=== PATIENT | female | born 1965 | race Caucasian/White ===

== ENCOUNTER 2021-02-02 20:03 | Inpatient (IN) ==
[2021-02-02] MEDS ORDERED: DILTIAZEM 50 MG/10 ML VIAL IV STA (20:19)
[2021-02-02 21:31] LABS: Basophils % 0.1 % (0.0-0.8); Eosinophils % 0.2 % (0.00-10.9); Hematocrit 27.3 VOL% (35.7-47.0); Immature Granulocytes % 1.3 %; Immature Granulocytes Absolute 0.16 #; Lymphocytes # 1.1 10*3/uL (1.4-4.0); Lymphocytes % 8.4 % (21.3-54.2); Mean Corpuscular Volume 92.5 FL (87-102); Mean Platelet Volume 10.9 FL (9.6-12.0); Monocytes % 9.8 % (1.7-12.7); Neutrophils % 80.2 % (38.7-73.9); Platelet Count 72 T/CUMM (130-400); Red Blood Count 2.95 MC/CUMM (3.8-5.5); White Blood Count 12.8 T/CUMM (4-12)
[2021-02-02 21:52] LABS: Anisocytosis 1+; Burr Cells 1+; Hypochromasia 1+; Schistocytes 1+
[2021-02-02 21:53] LABS: Platelet Estimate Decreased; Polychromasia Slight
[2021-02-02 21:58] LABS: Bilirubin,Total 4.7 MG/DL (0.20-1.00); Calcium 8.7 MG/DL (8.5-10.1); Osmolality,Calculated 286.7 MOS/KG (273-304); Potassium 4.2 MMOL/L (3.5-5.1); Total Protein 4.2 G/DL (6.4-8.2)
[2021-02-02 22:51] LABS: Free T4 (Free Thyroxine) 0.48 NG/DL (0.76-1.46)
[2021-02-03] MEDS ORDERED: DOCUSATE SODIUM 100 MG CAPSULE PO PRN (00:53)
[2021-02-03] MEDS ORDERED: hydrALAZINE 20 MG/1 ML VIAL IV PRN (00:53)
[2021-02-03] MEDS ORDERED: MORPHINE 2 MG/1 ML SYRINGE IV PRN (00:53)
[2021-02-03] MEDS ORDERED: guaiFENesin/DM ER 600-30 MG TABLET PO PRN (00:53)
[2021-02-03] MEDS ORDERED: DEXTROSE 50% 25 GM/50 ML VIAL IV PRN (00:53)
[2021-02-03] MEDS ORDERED: GLUCAGON 1 MG VIAL IM PRN (00:53)
[2021-02-03] MEDS: SODIUM CHLORIDE 0.9% 1,000 ML IV SCH ×3 (01:21→22:00)
[2021-02-03 06:08] LABS: Basophils % 0.1 % (0.0-0.8); Eosinophils % 0.2 % (0.00-10.9); Hematocrit 25.9 VOL% (35.7-47.0); Hemoglobin 8.7 GM/DL (12.0-16.0); Immature Granulocytes % 1.2 %; Immature Granulocytes Absolute 0.17 #; Lymphocytes # 1.3 10*3/uL (1.4-4.0); Lymphocytes % 8.9 % (21.3-54.2); Mean Corpuscular HGB Conc 33.6 GM/DL (32-36); Mean Corpuscular Volume 92.8 FL (87-102); Mean Platelet Volume 10.8 FL (9.6-12.0); Monocytes % 9.1 % (1.7-12.7); Neutrophils % 80.5 % (38.7-73.9); Red Blood Count 2.79 MC/CUMM (3.8-5.5); White Blood Count 14.2 T/CUMM (4-12)
[2021-02-03 06:12] LABS: Platelet Count 79 T/CUMM (130-400)
[2021-02-03] MEDS: LEVOTHYROXINE 100 MCG TABLET PO SCH (06:15)
[2021-02-03 06:29] LABS: Anisocytosis 2+; Macrocytosis 1+; Platelet Estimate Decreased
[2021-02-03 06:30] LABS: Burr Cells Few; Calcium 8.9 MG/DL (8.5-10.1); Osmolality,Calculated 292.4 MOS/KG (273-304); Ovalocytes Few; Potassium 4.8 MMOL/L (3.5-5.1); Total Protein 4.1 G/DL (6.4-8.2)
[2021-02-03] MEDS: LACTULOSE 20 GM/30 ML UDCUP PO SCH ×2 (15:27→22:45)
[2021-02-04 06:09] LABS: Basophils % 0.1 % (0.0-0.8); Eosinophils # 0.5 10*3/uL (0.0-0.87); Eosinophils % 3.4 % (0.00-10.9); Hematocrit 23.6 VOL% (35.7-47.0); Hemoglobin 8.2 GM/DL (12.0-16.0); Immature Granulocytes % 1.5 %; Immature Granulocytes Absolute 0.21 #; Lymphocytes # 1.8 10*3/uL (1.4-4.0); Lymphocytes % 12.7 % (21.3-54.2); Mean Corpuscular HGB Conc 34.7 GM/DL (32-36); Mean Corpuscular Volume 91.8 FL (87-102); Mean Platelet Volume 10.8 FL (9.6-12.0); Monocytes % 11.2 % (1.7-12.7); Neutrophils % 71.1 % (38.7-73.9); Platelet Count 69 T/CUMM (130-400); Red Blood Count 2.57 MC/CUMM (3.8-5.5); Red Cell Distribution Width 22.6 % (9.3-17.3); White Blood Count 14.4 T/CUMM (4-12)
[2021-02-04 06:31] LABS: Hypochromasia 1+; Microcytosis 1+; Platelet Estimate Decreased
[2021-02-04] MEDS: LEVOTHYROXINE 100 MCG TABLET PO SCH (06:36)
[2021-02-04 06:44] LABS: Calcium 8.5 MG/DL (8.5-10.1); Osmolality,Calculated 287.7 MOS/KG (273-304); Potassium 4.1 MMOL/L (3.5-5.1)
[2021-02-04] MEDS ORDERED: ALBUMIN 25% 50 GM/200 ML VIAL IV ONE (10:03)
[2021-02-04] MEDS: LACTULOSE 20 GM/30 ML UDCUP PO SCH ×3 (10:33→22:30)
[2021-02-04] MEDS: PROPRANOLOL 20 MG TABLET PO SCH (10:34)
[2021-02-04 10:46] LABS: % Iron Saturation 41.6 % (18-50); Ferritin 335.2 ng/mL (8-252)
[2021-02-04 14:33] LABS: Bilirubin,Urine Negative (Negative); Blood, Urine Negative (Negative); Glucose,Urine (UA) Negative (Negative); Hyaline Casts,Urine 27 /LPF (0-3); Ketones,Urine Negative (Negative); Mucus,Urine Occasional /LPF (Occasional); Nitrite,Urine Negative (Negative); Protein,Urine Negative; Squamous Epithelial Cell,Urine Occasional /HPF (0-10); Urine Appearance CLEAR (Clear); Urine Color Yellow (Yellow); Urine Specific Gravity 1.011 (1.001-1.035); Urine Urobilinogen < 2.0 EU/DL (0.2-1.0)
[2021-02-04 14:49] LABS: Bacteria,Urine Occasional /HPF (Few); Bilirubin,Urine Negative (Negative); Blood, Urine Negative (Negative); Glucose,Urine (UA) Negative (Negative); Hyaline Casts,Urine 13 /LPF (0-3); Ketones,Urine Negative (Negative); Mucus,Urine Occasional /LPF (Occasional); Nitrite,Urine Negative (Negative); Protein,Urine Negative; RBC,Urine 1 /HPF (0-4); Squamous Epithelial Cell,Urine Occasional /HPF (0-10); Urine Appearance CLEAR (Clear); Urine Color Yellow (Yellow); Urine Specific Gravity 1.011 (1.001-1.035); Urine Urobilinogen < 2.0 EU/DL (0.2-1.0)
[2021-02-04] MEDS: MIDODRINE 5 MG TABLET PO SCH ×2 (14:56→22:30)
[2021-02-04] MEDS: PANTOPRAZOLE 40 MG TABLET PO SCH (15:51)
[2021-02-05] MEDS: LEVOTHYROXINE 100 MCG TABLET PO SCH (05:56)
[2021-02-05 06:59] LABS: Albumin 2.2 G/DL (3.4-5.0); Bilirubin,Total 4.7 MG/DL (0.20-1.00); Calcium 8.8 MG/DL (8.5-10.1); Osmolality,Calculated 289.4 MOS/KG (273-304); Potassium 3.7 MMOL/L (3.5-5.1); Total Protein 3.7 G/DL (6.4-8.2)
[2021-02-05 07:15] LABS: Basophils % 0.1 % (0.0-0.8); Eosinophils # 0.8 10*3/uL (0.0-0.87); Eosinophils % 7.5 % (0.00-10.9); Hematocrit 20.3 VOL% (35.7-47.0); Hemoglobin 6.9 GM/DL (12.0-16.0); Immature Granulocytes % 0.6 %; Immature Granulocytes Absolute 0.07 #; Lymphocytes # 1.1 10*3/uL (1.4-4.0); Lymphocytes % 9.9 % (21.3-54.2); Mean Corpuscular Volume 92.3 FL (87-102); Mean Platelet Volume 10.5 FL (9.6-12.0); Monocytes % 6.2 % (1.7-12.7); Neutrophils % 75.7 % (38.7-73.9); White Blood Count 10.8 T/CUMM (4-12)
[2021-02-05 07:17] LABS: Platelet Count 51 T/CUMM (130-400)
[2021-02-05 07:21] LABS: Hypochromasia 2+; Microcytosis 1+; Ovalocytes Slight; Platelet Estimate Decreased
[2021-02-05] MEDS ORDERED: SODIUM CHLORIDE 0.9% 1,000 ML IV PRN (08:27)
[2021-02-05] MEDS ORDERED: ALBUMIN 25% 50 GM/200 ML VIAL IV ONE (08:36)
[2021-02-05] MEDS: cefTRIAXone 1,000 MG in SODIUM CHLORIDE 0.9% 100 ML IV SCH (09:03)
[2021-02-05] MEDS: LACTULOSE 20 GM/30 ML UDCUP PO SCH ×3 (09:06→22:38)
[2021-02-05] MEDS: PROPRANOLOL 20 MG TABLET PO SCH (09:06)
[2021-02-05] MEDS: PANTOPRAZOLE 40 MG VIAL IV SCH ×2 (09:06→22:35)
[2021-02-05] MEDS: MIDODRINE 5 MG TABLET PO SCH ×2 (09:06→22:37)
[2021-02-05] MEDS: PANTOPRAZOLE 40 MG TABLET PO SCH (12:47)
[2021-02-05 21:58] LABS: Hematocrit 26.7 VOL% (35.7-47.0); Hemoglobin 8.7 GM/DL (12.0-16.0)
[2021-02-06 06:02] LABS: PT Patient Result 21.4 SECS (10.5-12.0)
[2021-02-06] MEDS: LEVOTHYROXINE 100 MCG TABLET PO SCH (06:03)
[2021-02-06 06:04] LABS: Basophils % 0.1 % (0.0-0.8); Eosinophils # 0.9 10*3/uL (0.0-0.87); Eosinophils % 10.9 % (0.00-10.9); Hematocrit 24.8 VOL% (35.7-47.0); Hemoglobin 8.3 GM/DL (12.0-16.0); Immature Granulocytes % 0.8 %; Immature Granulocytes Absolute 0.06 #; Lymphocytes # 0.7 10*3/uL (1.4-4.0); Lymphocytes % 9.4 % (21.3-54.2); Mean Corpuscular HGB Conc 33.5 GM/DL (32-36); Mean Corpuscular Volume 91.2 FL (87-102); Mean Platelet Volume 10.7 FL (9.6-12.0); Neutrophils % 69.8 % (38.7-73.9); Platelet Count 42 T/CUMM (130-400); Red Blood Count 2.72 MC/CUMM (3.8-5.5); Red Cell Distribution Width 21.3 % (9.3-17.3); White Blood Count 7.8 T/CUMM (4-12)
[2021-02-06 06:25] LABS: Hypochromasia 1+; Microcytosis 1+
[2021-02-06 06:26] LABS: Platelet Estimate Decreased
[2021-02-06 06:44] LABS: Albumin 2.2 G/DL (3.4-5.0); Bilirubin,Total 4.6 MG/DL (0.20-1.00); Calcium 8.7 MG/DL (8.5-10.1); Osmolality,Calculated 290.2 MOS/KG (273-304); Potassium 3.6 MMOL/L (3.5-5.1); Total Protein 3.9 G/DL (6.4-8.2)
[2021-02-06] MEDS: MIDODRINE 5 MG TABLET PO SCH ×2 (11:13→21:43)
[2021-02-06] MEDS: PANTOPRAZOLE 40 MG VIAL IV SCH ×2 (11:13→21:44)
[2021-02-06] MEDS: cefTRIAXone 1,000 MG in SODIUM CHLORIDE 0.9% 100 ML IV SCH (11:14)
[2021-02-06] MEDS: LACTULOSE 20 GM/30 ML UDCUP PO SCH ×3 (11:14→21:43)
[2021-02-06] MEDS: PROPRANOLOL 20 MG TABLET PO SCH (11:15)
[2021-02-06 13:12] LABS: Hematocrit 24.8 VOL% (35.7-47.0); Hemoglobin 8.3 GM/DL (12.0-16.0)
[2021-02-06] MEDS ORDERED: PHYTONADIONE 10 MG/1 ML AMP SUBCUT ONE (14:16)
[2021-02-07 06:22] LABS: Basophils % 0.2 % (0.0-0.8); Eosinophils # 1.1 10*3/uL (0.0-0.87); Eosinophils % 11.5 % (0.00-10.9); Hematocrit 25.2 VOL% (35.7-47.0); Hemoglobin 8.7 GM/DL (12.0-16.0); Lymphocytes # 0.5 10*3/uL (1.4-4.0); Lymphocytes % 5.6 % (21.3-54.2); Mean Corpuscular HGB Conc 34.5 GM/DL (32-36); Mean Corpuscular Volume 91.6 FL (87-102); Mean Platelet Volume 11.5 FL (9.6-12.0); Monocytes % 9.7 % (1.7-12.7); Platelet Count 46 T/CUMM (130-400); Red Blood Count 2.75 MC/CUMM (3.8-5.5); Red Cell Distribution Width 22.1 % (9.3-17.3); White Blood Count 9.5 T/CUMM (4-12)
[2021-02-07 06:35] LABS: PT Patient Result 21.2 SECS (10.5-12.0)
[2021-02-07 06:40] LABS: Calcium 8.6 MG/DL (8.5-10.1); Potassium 3.4 MMOL/L (3.5-5.1)
[2021-02-07 06:42] LABS: Eosinophils 4 % (0-10); Hypochromasia 1+; Lymphocytes 9 % (20-55); Platelet Estimate Decreased; Segmented Neutrophils 80 % (50-85); Total Cells Counted 100
[2021-02-07] MEDS: PANTOPRAZOLE 40 MG VIAL IV SCH ×2 (10:07→20:06)
[2021-02-07] MEDS: MIDODRINE 5 MG TABLET PO SCH ×2 (10:08→20:06)
[2021-02-07] MEDS: PROPRANOLOL 20 MG TABLET PO SCH (10:08)
[2021-02-07] MEDS: LACTULOSE 20 GM/30 ML UDCUP PO SCH ×3 (10:08→20:06)
[2021-02-07] MEDS: LEVOTHYROXINE 100 MCG TABLET PO SCH (10:08)
[2021-02-07] MEDS: cefTRIAXone 1,000 MG in SODIUM CHLORIDE 0.9% 100 ML IV SCH (10:08)
[2021-02-07] MEDS: LACTATED RINGERS 1,000 ML IV SCH ×2 (10:47→12:24)
[2021-02-07] MEDS ORDERED: POTASSIUM CHLORIDE 20 MEQ TABLET PO ONE (11:00)
[2021-02-07] MEDS ORDERED: ETOMIDATE 20 MG/10 ML VIAL IV ONE (11:34)
[2021-02-07] MEDS ORDERED: LIDOCAINE 2% 5 ML VIAL ONE (11:34)
[2021-02-07] MEDS ORDERED: ePHEDrine 50 MG/ML VIAL ONE (11:43)
[2021-02-08 05:43] LABS: Basophils % 0.2 % (0.0-0.8); Eosinophils # 1.1 10*3/uL (0.0-0.87); Eosinophils % 12.9 % (0.00-10.9); Hematocrit 24.6 VOL% (35.7-47.0); Hemoglobin 8.2 GM/DL (12.0-16.0); Immature Granulocytes % 0.6 %; Immature Granulocytes Absolute 0.05 #; Lymphocytes # 0.5 10*3/uL (1.4-4.0); Lymphocytes % 6.2 % (21.3-54.2); Mean Corpuscular HGB Conc 33.3 GM/DL (32-36); Mean Corpuscular Volume 92.1 FL (87-102); Mean Platelet Volume 10.9 FL (9.6-12.0); Monocytes % 11.6 % (1.7-12.7); Neutrophils % 68.5 % (38.7-73.9); Red Blood Count 2.67 MC/CUMM (3.8-5.5); Red Cell Distribution Width 22.1 % (9.3-17.3); White Blood Count 8.7 T/CUMM (4-12)
[2021-02-08 06:00] LABS: Platelet Count 41 T/CUMM (130-400)
[2021-02-08 06:12] LABS: Eosinophils 15 % (0-10); Hypochromasia 1+; Lymphocytes 3 % (20-55); Microcytosis 1+; Segmented Neutrophils 77 % (50-85); Total Cells Counted 100
[2021-02-08 06:13] LABS: Acanthocytes Few; Burr Cells Slight; Target Cells Slight
[2021-02-08 06:14] LABS: Platelet Estimate Decreased; Polychromasia Slight
[2021-02-08] MEDS: LEVOTHYROXINE 100 MCG TABLET PO SCH (06:19)
[2021-02-08] MEDS: LACTATED RINGERS 1,000 ML IV SCH (07:54)
[2021-02-08] MEDS: LACTULOSE 20 GM/30 ML UDCUP PO SCH ×3 (09:47→21:47)
[2021-02-08] MEDS: PANTOPRAZOLE 40 MG VIAL IV SCH ×2 (09:49→21:47)
[2021-02-08] MEDS: PROPRANOLOL 20 MG TABLET PO SCH (09:49)
[2021-02-08] MEDS: MIDODRINE 5 MG TABLET PO SCH ×2 (09:49→21:47)
[2021-02-08] MEDS: cefTRIAXone 1,000 MG in SODIUM CHLORIDE 0.9% 100 ML IV SCH (09:50)
[2021-02-09] MEDS: LEVOTHYROXINE 100 MCG TABLET PO SCH (05:56)
[2021-02-09] MEDS: PROPRANOLOL 20 MG TABLET PO SCH (08:57)
[2021-02-09] MEDS: MIDODRINE 5 MG TABLET PO SCH (08:57)
[2021-02-09] MEDS: PANTOPRAZOLE 40 MG VIAL IV SCH (08:57)
[2021-02-09] MEDS: cefTRIAXone 1,000 MG in SODIUM CHLORIDE 0.9% 100 ML IV SCH (08:58)
[2021-02-09] MEDS: LACTULOSE 20 GM/30 ML UDCUP PO SCH ×2 (10:25→14:03)
[2021-02-09 11:53] VITALS: BP 95/34
== END 2021-02-09 14:45 | DRG 377 ==
LOC: EDUNIT# → EDBD → N.EDINP 20:03 → N.ED 20:03 → SUATTDRO 02-03 00:53 → N.5E 02-03 02:52 → SUATTDRO 02-05 08:31
PROVIDERS: ADMIT Internal Medicine; ATTEND Internal Medicine

== ENCOUNTER 2021-02-15 18:52 | Inpatient (IN) ==
[2021-02-15] MEDS ORDERED: HYDROmorphone 2 MG/1 ML VIAL ONE (18:54)
[2021-02-15] MEDS ORDERED: ONDANSETRON 4 MG/2 ML VIAL ONE (18:54)
[2021-02-15] MEDS ORDERED: ceFAZolin 2,000 MG/50 ML DUPLEX IV ONE (19:01)
[2021-02-15] MEDS ORDERED: ONDANSETRON 4 MG/2 ML VIAL IV STA (20:57)
[2021-02-15] MEDS ORDERED: LACTATED RINGERS 500 ML IV ONE (20:57)
[2021-02-15 21:39] LABS: Basophils % 0.3 % (0.0-0.8); Eosinophils # 1.5 10*3/uL (0.0-0.87); Eosinophils % 14.6 % (0.00-10.9); Hematocrit 22.8 VOL% (35.7-47.0); Hemoglobin 7.7 GM/DL (12.0-16.0); Immature Granulocytes % 0.6 %; Immature Granulocytes Absolute 0.06 #; Lymphocytes # 1.1 10*3/uL (1.4-4.0); Lymphocytes % 11.3 % (21.3-54.2); Mean Corpuscular HGB Conc 33.8 GM/DL (32-36); Mean Corpuscular Volume 91.6 FL (87-102); Mean Platelet Volume 11.1 FL (9.6-12.0); Monocytes % 7.3 % (1.7-12.7); Neutrophils % 65.9 % (38.7-73.9); Platelet Count 80 T/CUMM (130-400); Red Blood Count 2.49 MC/CUMM (3.8-5.5); Red Cell Distribution Width 21.5 % (9.3-17.3)
[2021-02-15 21:46] LABS: INR 2.2; PT Patient Result 23.2 SECS (10.5-12.0)
[2021-02-15 21:55] LABS: Alanine Aminotransferase 52 U/L (13-56); Alkaline Phosphatase 118 U/L (45-117); Aspartate Amino Transferase 45 U/L (0-37); Blood Urea Nitrogen 67 MG/DL (7-18); Calcium 8.3 MG/DL (8.5-10.1); Carbon Dioxide 15 MMOL/L (21-32); Estimated Glom Filtration Rate 19 ML/MIN; Glucose 132 MG/DL (74-106); Lactic Acid 4.1 MMOL/L (0.4-2.0); Potassium 3.2 MMOL/L (3.5-5.1); Sodium 136 MMOL/L (136-145); Total Protein 3.4 G/DL (6.4-8.2)
[2021-02-15 22:14] LABS: Eosinophils 17 % (0-10); Lymphocytes 7 % (20-55); Segmented Neutrophils 75 % (50-85); Total Cells Counted 100
[2021-02-15 22:15] LABS: Platelet Estimate Decreased
[2021-02-15 22:15] LABS: Bacteria,Urine Occasional /HPF (Few); Bilirubin,Urine Negative (Negative); Blood, Urine Moderate mg/dL (Negative); Glucose,Urine (UA) Negative (Negative); Hyaline Casts,Urine 14 /LPF (0-3); Ketones,Urine Negative (Negative); Nitrite,Urine Negative (Negative); Protein,Urine Negative; RBC,Urine 3 /HPF (0-4); Squamous Epithelial Cell,Urine Occasional /HPF (0-10); Urine Appearance Slightly Hazy (Clear); Urine Color Amber (Yellow); Urine Specific Gravity 1.012 (1.001-1.035); Urine Urobilinogen < 2.0 EU/DL (0.2-1.0)
[2021-02-15 22:16] LABS: Acanthocytes 1+; Schistocytes Few
[2021-02-15] MEDS ORDERED: MEROPENEM 500 MG in SODIUM CHLORIDE 0.9% 100 ML IV ONE (22:16)
[2021-02-15] MEDS ORDERED: hydrALAZINE 20 MG/1 ML VIAL IV PRN (22:26)
[2021-02-15] MEDS ORDERED: MORPHINE 2 MG/1 ML SYRINGE IV PRN (22:26)
[2021-02-15] MEDS ORDERED: DEXTROSE 50% 25 GM/50 ML SYRINGE IV PRN (22:26)
[2021-02-15] MEDS ORDERED: NICOTINE 21 MG/24 HR PATCH TRANSDERM PRN (22:26)
[2021-02-15] MEDS ORDERED: ACETAMINOPHEN 325 MG TABLET PO PRN (22:26)
[2021-02-15] MEDS ORDERED: GLUCAGON 1 MG VIAL IM PRN (22:26)
[2021-02-15] MEDS ORDERED: ONDANSETRON 4 MG/2 ML VIAL IV PRN (22:26)
[2021-02-15] MEDS ORDERED: guaiFENesin/DM ER 600-30 MG TABLET PO PRN (22:26)
[2021-02-15] MEDS ORDERED: diphenhydrAMINE CAP 25 MG CAPSULE PO PRN (22:26)
[2021-02-16] MEDS ORDERED: SODIUM CHLORIDE 0.9% 1,000 ML IV PRN (01:22)
[2021-02-16] MEDS ORDERED: SODIUM CHLORIDE 0.9% 1,000 ML IV ONE (06:42)
[2021-02-16] MEDS ORDERED: POTASSIUM CHLORIDE 20 MEQ TABLET PO ONE (09:00)
[2021-02-16] MEDS: PANTOPRAZOLE 40 MG TABLET PO SCH (09:33)
[2021-02-16] MEDS: MEROPENEM 500 MG in SODIUM CHLORIDE 0.9% 100 ML IV SCH ×2 (09:33→21:54)
[2021-02-16] MEDS: DOCUSATE SODIUM 100 MG CAPSULE PO SCH ×2 (09:34→21:49)
[2021-02-16] MEDS ORDERED: ACETAMINOPHEN 500 MG TABLET PO PRN (12:05)
[2021-02-16] MEDS ORDERED: MIDODRINE 5 MG TABLET PO SCH (12:30)
[2021-02-16] MEDS ORDERED: LACTULOSE 20 GM/30 ML UDCUP PO SCH (15:00)
[2021-02-16] MEDS ORDERED: ALBUMIN 25% 50 GM/200 ML VIAL IV ONE (15:39)
[2021-02-16] MEDS: FUROSEMIDE 20 MG/2 ML VIAL IV SCH (16:02)
[2021-02-16] MEDS: LACTULOSE 20 GM/30 ML UDCUP PO SCH ×2 (16:02→21:48)
[2021-02-16 17:07] LABS: Hematocrit 25.9 VOL% (35.7-47.0); Hemoglobin 8.7 GM/DL (12.0-16.0)
[2021-02-16] MEDS: ZALEPLON 5 MG CAPSULE PO PRN (21:48)
[2021-02-16] MEDS: MIDODRINE 2.5 MG TABLET PO SCH (21:48)
[2021-02-17 03:41] LABS: ABG Base Excess -7.5 MMOL/L (-2.5-2.5); ABG HCO3 18.1 MMOL/L (20-26); ABG Oxygen Saturation 80.5 % (95-100); ABG PCO2 33.7 MM HG (35-48); ABG PH 7.328 (7.35-7.45); ABG PO2 50.4 MM HG (80-95); ABG TCO2 16.6 MMOL/L (23-27)
[2021-02-17] MEDS: LEVOTHYROXINE 100 MCG TABLET PO SCH (05:51)
[2021-02-17 06:10] LABS: Basophils % 0.5 % (0.0-0.8); Eosinophils # 1.1 10*3/uL (0.0-0.87); Eosinophils % 15.9 % (0.00-10.9); Hematocrit 23.8 VOL% (35.7-47.0); Hemoglobin 7.8 GM/DL (12.0-16.0); Immature Granulocytes % 0.5 %; Immature Granulocytes Absolute 0.03 #; Lymphocytes # 0.7 10*3/uL (1.4-4.0); Lymphocytes % 10.4 % (21.3-54.2); Mean Corpuscular HGB Conc 32.8 GM/DL (32-36); Mean Platelet Volume 10.8 FL (9.6-12.0); Monocytes % 11.6 % (1.7-12.7); Neutrophils % 61.1 % (38.7-73.9); Platelet Count 47 T/CUMM (130-400); Red Blood Count 2.56 MC/CUMM (3.8-5.5); Red Cell Distribution Width 20.4 % (9.3-17.3); White Blood Count 6.6 T/CUMM (4-12)
[2021-02-17 06:31] LABS: Albumin 2.4 G/DL (3.4-5.0); Bilirubin,Direct 2.8 MG/DL (0.0-0.20); Bilirubin,Indirect 2.4 MG/DL (0.0-1.0); Bilirubin,Total 5.2 MG/DL (0.20-1.00); Calcium 8.5 MG/DL (8.5-10.1); Osmolality,Calculated 299.4 MOS/KG (273-304); Potassium 3.3 MMOL/L (3.5-5.1); Total Protein 3.6 G/DL (6.4-8.2)
[2021-02-17 06:35] LABS: Band Neutrophils 1 % (0-10); Eosinophils 14 % (0-10); Lymphocytes 6 % (20-55); Platelet Estimate Decreased; Segmented Neutrophils 76 % (50-85); Total Cells Counted 100
[2021-02-17 06:36] LABS: Hypochromasia 1+
[2021-02-17 06:49] LABS: Uric Acid 13.2 MG/DL (2.6-6.0)
[2021-02-17 08:34] LABS: ABG Base Excess -7.4 MMOL/L (-2.5-2.5); ABG HCO3 18.3 MMOL/L (20-26); ABG Oxygen Saturation 97.8 % (95-100); ABG PCO2 31.9 MM HG (35-48); ABG PH 7.347 (7.35-7.45); ABG TCO2 16.4 MMOL/L (23-27); Allen Test Positive; Pt O2 Delivery Device Room Air
[2021-02-17] MEDS ORDERED: POTASSIUM CHLORIDE 20 MEQ TABLET PO SCH (09:00)
[2021-02-17] MEDS: PHYTONADIONE 5 MG/5 ML ORAL.SYR PO SCH (09:23)
[2021-02-17] MEDS: PANTOPRAZOLE 40 MG TABLET PO SCH (09:24)
[2021-02-17] MEDS: MIDODRINE 2.5 MG TABLET PO SCH ×3 (09:24→21:48)
[2021-02-17] MEDS: LACTULOSE 20 GM/30 ML UDCUP PO SCH ×3 (09:24→21:47)
[2021-02-17] MEDS: DOCUSATE SODIUM 100 MG CAPSULE PO SCH ×2 (09:24→21:47)
[2021-02-17] MEDS: FUROSEMIDE 20 MG/2 ML VIAL IV SCH (09:24)
[2021-02-17] MEDS: MEROPENEM 500 MG in SODIUM CHLORIDE 0.9% 100 ML IV SCH (09:25)
[2021-02-17] MEDS ORDERED: FOSFOMYCIN 3 GM PACK PO ONE ×2 (13:00)
[2021-02-17] MEDS ORDERED: TUBERCULIN SKIN TEST 0.1 ML SYRINGE INTRADERM ONE (13:36)
[2021-02-17] MEDS ORDERED: SODIUM CHLORIDE 0.9% 1,000 ML IV PRN (14:12)
[2021-02-17] MEDS: FUROSEMIDE 40 MG TABLET PO SCH (17:45)
[2021-02-17] MEDS: RIFAXIMIN 550 MG TABLET PO SCH (21:47)
[2021-02-18] MEDS: LEVOTHYROXINE 100 MCG TABLET PO SCH (06:02)
[2021-02-18 06:44] LABS: Calcium 8.9 MG/DL (8.5-10.1); Osmolality,Calculated 299.3 MOS/KG (273-304); Potassium 3.2 MMOL/L (3.5-5.1)
[2021-02-18] MEDS ORDERED: POTASSIUM CHLORIDE 20 MEQ TABLET PO ONE (07:49)
[2021-02-18] MEDS: LACTULOSE 20 GM/30 ML UDCUP PO SCH ×3 (09:16→21:56)
[2021-02-18] MEDS: MIDODRINE 2.5 MG TABLET PO SCH ×3 (09:16→21:57)
[2021-02-18] MEDS: PHYTONADIONE 5 MG/5 ML ORAL.SYR PO SCH (09:16)
[2021-02-18] MEDS: PANTOPRAZOLE 40 MG TABLET PO SCH (09:17)
[2021-02-18] MEDS: RIFAXIMIN 550 MG TABLET PO SCH ×3 (09:17→21:56)
[2021-02-18] MEDS: FUROSEMIDE 40 MG TABLET PO SCH ×2 (09:17→16:04)
[2021-02-18] MEDS: DOCUSATE SODIUM 100 MG CAPSULE PO SCH ×2 (09:17→21:57)
[2021-02-18 09:33] LABS: Basophils % 0.6 % (0.0-0.8); Eosinophils # 1.2 10*3/uL (0.0-0.87); Eosinophils % 16.6 % (0.00-10.9); Hematocrit 24.9 VOL% (35.7-47.0); Hemoglobin 8.4 GM/DL (12.0-16.0); Immature Granulocytes % 0.6 %; Immature Granulocytes Absolute 0.04 #; Lymphocytes % 13.4 % (21.3-54.2); Mean Corpuscular HGB Conc 33.7 GM/DL (32-36); Mean Corpuscular Volume 91.9 FL (87-102); Monocytes % 11.8 % (1.7-12.7); Platelet Count 52 T/CUMM (130-400); Red Blood Count 2.71 MC/CUMM (3.8-5.5); Red Cell Distribution Width 20.5 % (9.3-17.3); White Blood Count 7.2 T/CUMM (4-12)
[2021-02-18 09:55] LABS: Eosinophils 15 % (0-10); Lymphocytes 10 % (20-55); Nucleated Red Blood Cells 1 (0-5); Segmented Neutrophils 65 % (50-85); Total Cells Counted 100
[2021-02-18 09:56] LABS: Acanthocytes 1+; Anisocytosis 1+; Burr Cells Few; Hypochromasia 1+; Microcytosis 1+
[2021-02-18 09:57] LABS: Platelet Estimate Decreased; Target Cells Slight
[2021-02-18] MEDS: DESITIN 4OZ/NYSTATIN 15 GRAM MIXTURE PASTE TOP SCH (21:56)
[2021-02-18] MEDS: ZALEPLON 5 MG CAPSULE PO PRN (21:57)
[2021-02-19 05:46] LABS: Basophils % 0.5 % (0.0-0.8); Eosinophils # 1.2 10*3/uL (0.0-0.87); Eosinophils % 13.2 % (0.00-10.9); Immature Granulocytes % 0.5 %; Immature Granulocytes Absolute 0.04 #; Lymphocytes # 1.3 10*3/uL (1.4-4.0); Mean Corpuscular HGB Conc 33.3 GM/DL (32-36); Mean Corpuscular Volume 90.9 FL (87-102); Mean Platelet Volume 11.3 FL (9.6-12.0); Monocytes % 13.3 % (1.7-12.7); Neutrophils % 57.5 % (38.7-73.9); Platelet Count 51 T/CUMM (130-400); Red Blood Count 2.64 MC/CUMM (3.8-5.5); Red Cell Distribution Width 20.8 % (9.3-17.3); White Blood Count 8.8 T/CUMM (4-12)
[2021-02-19] MEDS: LEVOTHYROXINE 100 MCG TABLET PO SCH (05:50)
[2021-02-19 06:06] LABS: Osmolality,Calculated 301.1 MOS/KG (273-304); Potassium 3.4 MMOL/L (3.5-5.1)
[2021-02-19 06:13] LABS: Eosinophils 11 % (0-10); Lymphocytes 18 % (20-55); Platelet Estimate Decreased; Segmented Neutrophils 64 % (50-85); Total Cells Counted 100
[2021-02-19 06:14] LABS: Burr Cells Slight; Hypochromasia 1+; Microcytosis 1+; Ovalocytes Slight
[2021-02-19] MEDS: LACTULOSE 20 GM/30 ML UDCUP PO SCH ×3 (10:21→21:53)
[2021-02-19] MEDS: DOCUSATE SODIUM 100 MG CAPSULE PO SCH ×2 (10:22→21:53)
[2021-02-19] MEDS: FUROSEMIDE 40 MG TABLET PO SCH ×2 (10:22→15:05)
[2021-02-19] MEDS: MIDODRINE 2.5 MG TABLET PO SCH ×3 (10:22→21:54)
[2021-02-19] MEDS: PANTOPRAZOLE 40 MG TABLET PO SCH (10:22)
[2021-02-19] MEDS: RIFAXIMIN 550 MG TABLET PO SCH ×3 (10:22→21:53)
[2021-02-19] MEDS: POTASSIUM CHLORIDE 20 MEQ TABLET PO SCH (10:22)
[2021-02-19] MEDS: DESITIN 4OZ/NYSTATIN 15 GRAM MIXTURE PASTE TOP SCH ×2 (10:23→21:55)
[2021-02-19] MEDS: ALBUMIN 25% 12.5 GM/50 ML VIAL IV SCH ×2 (10:28→22:00)
[2021-02-19] MEDS: PHYTONADIONE 5 MG/5 ML ORAL.SYR PO SCH (10:28)
[2021-02-19 14:15] LABS: ABG Base Excess -8.4 MMOL/L (-2.5-2.5); ABG HCO3 17.6 MMOL/L (20-26); ABG Oxygen Saturation 97.6 % (95-100); ABG PCO2 28.6 MM HG (35-48); ABG PO2 96.8 MM HG (80-95); ABG TCO2 15.1 MMOL/L (23-27)
[2021-02-19] MEDS: SODIUM BICARBONATE 650 MG TABLET PO SCH (21:53)
[2021-02-19] MEDS: ZALEPLON 5 MG CAPSULE PO PRN (21:54)
[2021-02-20] MEDS: LEVOTHYROXINE 100 MCG TABLET PO SCH (05:49)
[2021-02-20 06:47] LABS: Calcium 8.9 MG/DL (8.5-10.1); Osmolality,Calculated 295.7 MOS/KG (273-304)
[2021-02-20] MEDS: LACTULOSE 20 GM/30 ML UDCUP PO SCH ×3 (09:05→20:42)
[2021-02-20] MEDS: POTASSIUM CHLORIDE 20 MEQ TABLET PO SCH (09:05)
[2021-02-20] MEDS: MIDODRINE 2.5 MG TABLET PO SCH ×3 (09:06→20:41)
[2021-02-20] MEDS: SODIUM BICARBONATE 650 MG TABLET PO SCH ×3 (09:06→20:42)
[2021-02-20] MEDS: PANTOPRAZOLE 40 MG TABLET PO SCH (09:06)
[2021-02-20] MEDS: DOCUSATE SODIUM 100 MG CAPSULE PO SCH ×2 (09:06→20:41)
[2021-02-20] MEDS: DESITIN 4OZ/NYSTATIN 15 GRAM MIXTURE PASTE TOP SCH ×2 (09:06→20:43)
[2021-02-20] MEDS: FUROSEMIDE 40 MG TABLET PO SCH ×2 (09:06→15:46)
[2021-02-20] MEDS: RIFAXIMIN 550 MG TABLET PO SCH ×3 (09:06→20:41)
[2021-02-20] MEDS: ALBUMIN 25% 12.5 GM/50 ML VIAL IV SCH ×2 (09:06→20:42)
[2021-02-20 11:03] LABS: Basophils % 0.4 % (0.0-0.8); Eosinophils # 1.1 10*3/uL (0.0-0.87); Eosinophils % 13.5 % (0.00-10.9); Hematocrit 23.1 VOL% (35.7-47.0); Hemoglobin 7.5 GM/DL (12.0-16.0); Immature Granulocytes % 0.4 %; Immature Granulocytes Absolute 0.03 #; Lymphocytes # 1.5 10*3/uL (1.4-4.0); Lymphocytes % 18.1 % (21.3-54.2); Mean Corpuscular HGB Conc 32.5 GM/DL (32-36); Mean Corpuscular Volume 93.9 FL (87-102); Mean Platelet Volume 11.5 FL (9.6-12.0); Monocytes % 10.8 % (1.7-12.7); Neutrophils % 56.8 % (38.7-73.9); Platelet Count 47 T/CUMM (130-400); Red Blood Count 2.46 MC/CUMM (3.8-5.5); Red Cell Distribution Width 21.4 % (9.3-17.3); White Blood Count 8.2 T/CUMM (4-12)
[2021-02-20 11:29] LABS: Acanthocytes Few; Band Neutrophils 1 % (0-10); Burr Cells Slight; Eosinophils 13 % (0-10); Hypochromasia 1+; Lymphocytes 19 % (20-55); Microcytosis 1+; Segmented Neutrophils 55 % (50-85); Target Cells Slight; Total Cells Counted 100
[2021-02-20 11:30] LABS: Ovalocytes Slight; Platelet Estimate Decreased
[2021-02-20] MEDS ORDERED: CARBOXYMETHYLCELLULOSE 1% OPH SOLN BOTH EYES PRN (13:41)
[2021-02-20] MEDS: SKIN HEALING OINT (AQUAPHOR) 50 GM TUBE TOP SCH ×2 (14:07→20:43)
[2021-02-20] MEDS: ZALEPLON 5 MG CAPSULE PO PRN (20:42)
[2021-02-21] MEDS: LEVOTHYROXINE 100 MCG TABLET PO SCH (05:57)
[2021-02-21] MEDS: MIDODRINE 2.5 MG TABLET PO SCH ×3 (08:45→21:32)
[2021-02-21] MEDS: POTASSIUM CHLORIDE 20 MEQ TABLET PO SCH (08:45)
[2021-02-21] MEDS: DOCUSATE SODIUM 100 MG CAPSULE PO SCH ×2 (08:45→21:32)
[2021-02-21] MEDS: FUROSEMIDE 40 MG TABLET PO SCH ×2 (08:45→16:47)
[2021-02-21] MEDS: LACTULOSE 20 GM/30 ML UDCUP PO SCH ×3 (08:45→21:31)
[2021-02-21] MEDS: RIFAXIMIN 550 MG TABLET PO SCH ×3 (08:45→21:32)
[2021-02-21] MEDS: SODIUM BICARBONATE 650 MG TABLET PO SCH ×3 (08:45→21:32)
[2021-02-21] MEDS: PANTOPRAZOLE 40 MG TABLET PO SCH (08:45)
[2021-02-21] MEDS: SKIN HEALING OINT (AQUAPHOR) 50 GM TUBE TOP SCH ×3 (08:46→21:32)
[2021-02-21] MEDS: DESITIN 4OZ/NYSTATIN 15 GRAM MIXTURE PASTE TOP SCH ×2 (08:46→21:32)
[2021-02-21] MEDS: ALBUMIN 25% 12.5 GM/50 ML VIAL IV SCH (11:10)
[2021-02-21 12:13] LABS: Basophils # 0.1 10*3/uL (0.0-0.2); Basophils % 0.6 % (0.0-0.8); Eosinophils % 12.1 % (0.00-10.9); Hematocrit 23.2 VOL% (35.7-47.0); Hemoglobin 7.5 GM/DL (12.0-16.0); Immature Granulocytes % 0.5 %; Immature Granulocytes Absolute 0.04 #; Lymphocytes # 1.3 10*3/uL (1.4-4.0); Lymphocytes % 15.6 % (21.3-54.2); Mean Corpuscular HGB Conc 32.3 GM/DL (32-36); Mean Corpuscular Volume 93.5 FL (87-102); Mean Platelet Volume 11.3 FL (9.6-12.0); Monocytes % 11.6 % (1.7-12.7); Neutrophils % 59.6 % (38.7-73.9); Platelet Count 46 T/CUMM (130-400); Red Blood Count 2.48 MC/CUMM (3.8-5.5); Red Cell Distribution Width 21.4 % (9.3-17.3)
[2021-02-21] MEDS: MEROPENEM 500 MG in SODIUM CHLORIDE 0.9% 100 ML IV SCH (12:51)
[2021-02-21 13:00] LABS: Calcium 8.5 MG/DL (8.5-10.1); Osmolality,Calculated 303.3 MOS/KG (273-304); Potassium 3.8 MMOL/L (3.5-5.1)
[2021-02-21 13:02] LABS: Atypical Lymphocytes Few; Eosinophils 13 % (0-10); Lymphocytes 18 % (20-55); Segmented Neutrophils 63 % (50-85); Total Cells Counted 100
[2021-02-21 13:03] LABS: Acanthocytes Few; Burr Cells 2+; Target Cells Slight
[2021-02-21 13:04] LABS: Schistocytes Slight
[2021-02-21 13:05] LABS: Anisocytosis Slight; Elliptocytes Few
[2021-02-21 13:06] LABS: Platelet Estimate Decreased
[2021-02-21] MEDS: ZALEPLON 5 MG CAPSULE PO PRN (21:35)
[2021-02-22] MEDS: ALBUMIN 25% 12.5 GM/50 ML VIAL IV SCH ×3 (03:00→23:34)
[2021-02-22] MEDS: MEROPENEM 500 MG in SODIUM CHLORIDE 0.9% 100 ML IV SCH ×2 (03:31→13:12)
[2021-02-22] MEDS: LEVOTHYROXINE 100 MCG TABLET PO SCH (06:08)
[2021-02-22 07:55] LABS: Calcium 9.4 MG/DL (8.5-10.1); Osmolality,Calculated 306.7 MOS/KG (273-304); Potassium 4.5 MMOL/L (3.5-5.1)
[2021-02-22] MEDS: MIDODRINE 2.5 MG TABLET PO SCH ×3 (09:15→20:32)
[2021-02-22] MEDS: DOCUSATE SODIUM 100 MG CAPSULE PO SCH ×2 (09:15→20:32)
[2021-02-22] MEDS: FUROSEMIDE 40 MG TABLET PO SCH ×2 (09:15→15:40)
[2021-02-22] MEDS: LACTULOSE 20 GM/30 ML UDCUP PO SCH ×3 (09:15→20:33)
[2021-02-22] MEDS: RIFAXIMIN 550 MG TABLET PO SCH ×3 (09:15→20:31)
[2021-02-22] MEDS: POTASSIUM CHLORIDE 20 MEQ TABLET PO SCH (09:15)
[2021-02-22] MEDS: DESITIN 4OZ/NYSTATIN 15 GRAM MIXTURE PASTE TOP SCH ×2 (09:15→20:33)
[2021-02-22] MEDS: SODIUM BICARBONATE 650 MG TABLET PO SCH ×3 (09:15→20:31)
[2021-02-22] MEDS: SKIN HEALING OINT (AQUAPHOR) 50 GM TUBE TOP SCH ×3 (09:16→20:34)
[2021-02-22] MEDS: PANTOPRAZOLE 40 MG TABLET PO SCH (09:16)
[2021-02-22] MEDS: methylPREDNISolone SOD SUC 125 MG/2 ML VIAL IV SCH (09:39)
[2021-02-22 11:16] LABS: Basophils % 0.3 % (0.0-0.8); Eosinophils # 0.3 10*3/uL (0.0-0.87); Eosinophils % 4.4 % (0.00-10.9); Hematocrit 21.3 VOL% (35.7-47.0); Hemoglobin 7.2 GM/DL (12.0-16.0); Immature Granulocytes % 0.4 %; Immature Granulocytes Absolute 0.03 #; Lymphocytes # 0.9 10*3/uL (1.4-4.0); Lymphocytes % 12.1 % (21.3-54.2); Mean Corpuscular HGB Conc 33.8 GM/DL (32-36); Mean Corpuscular Volume 91.4 FL (87-102); Mean Platelet Volume 11.7 FL (9.6-12.0); Monocytes % 9.4 % (1.7-12.7); Neutrophils % 73.4 % (38.7-73.9); Red Blood Count 2.33 MC/CUMM (3.8-5.5); Red Cell Distribution Width 21.2 % (9.3-17.3); White Blood Count 7.1 T/CUMM (4-12)
[2021-02-22 11:22] LABS: Platelet Count 35 T/CUMM (130-400)
[2021-02-22 11:40] LABS: Acanthocytes 1+; Schistocytes Few; Target Cells Few
[2021-02-22 11:41] LABS: Platelet Estimate Decreased; Sickle Cells Slight
[2021-02-22 11:46] LABS: Albumin 2.8 G/DL (3.4-5.0); Bilirubin,Total 10.1 MG/DL (0.20-1.00); Calcium 9.3 MG/DL (8.5-10.1); Osmolality,Calculated 308.6 MOS/KG (273-304); Potassium 4.2 MMOL/L (3.5-5.1); Total Protein 3.9 G/DL (6.4-8.2)
[2021-02-22] MEDS: MYLANTA/LIDO VISC 2:1 300 ML BOTTLE SWISH/SWAL PRN (13:23)
[2021-02-22] MEDS ORDERED: SODIUM CHLORIDE 0.9% 1,000 ML IV PRN (16:59)
[2021-02-22] MEDS: SODIUM CHLORIDE 0.45% 1,000 ML IV SCH (17:50)
[2021-02-22] MEDS: ZALEPLON 5 MG CAPSULE PO PRN (20:32)
[2021-02-22] MEDS: WHITE PETROLATUM 30 GM TUBE TOP SCH (20:32)
[2021-02-23] MEDS: MEROPENEM 500 MG in SODIUM CHLORIDE 0.9% 100 ML IV SCH ×2 (00:42→16:34)
[2021-02-23] MEDS: SODIUM CHLORIDE 0.45% 1,000 ML IV SCH ×2 (05:35→11:49)
[2021-02-23] MEDS: LEVOTHYROXINE 100 MCG TABLET PO SCH (05:35)
[2021-02-23 06:51] LABS: Basophils % 0.2 % (0.0-0.8); Eosinophils % 0.2 % (0.00-10.9); Hematocrit 20.5 VOL% (35.7-47.0); Hemoglobin 6.8 GM/DL (12.0-16.0); Immature Granulocytes % 0.5 %; Immature Granulocytes Absolute 0.03 #; Lymphocytes # 0.9 10*3/uL (1.4-4.0); Mean Corpuscular HGB Conc 33.2 GM/DL (32-36); Mean Corpuscular Volume 93.6 FL (87-102); Monocytes % 4.3 % (1.7-12.7); Neutrophils % 81.8 % (38.7-73.9); Red Blood Count 2.19 MC/CUMM (3.8-5.5); Red Cell Distribution Width 21.2 % (9.3-17.3); White Blood Count 6.5 T/CUMM (4-12)
[2021-02-23 07:00] LABS: Platelet Count 27 T/CUMM (130-400)
[2021-02-23 07:12] LABS: Anisocytosis 2+; Platelet Estimate Decreased
[2021-02-23 07:13] LABS: Burr Cells 2+; Poikilocytosis 1+; Target Cells Few
[2021-02-23 07:14] LABS: Macrocytosis 1+
[2021-02-23 07:54] LABS: Bilirubin,Total 9.2 MG/DL (0.20-1.00); Calcium 9.3 MG/DL (8.5-10.1); Osmolality,Calculated 313.6 MOS/KG (273-304); Potassium 4.1 MMOL/L (3.5-5.1)
[2021-02-23] MEDS: POTASSIUM CHLORIDE 20 MEQ TABLET PO SCH (08:55)
[2021-02-23] MEDS: MIDODRINE 2.5 MG TABLET PO SCH ×3 (08:55→22:02)
[2021-02-23] MEDS: LACTULOSE 20 GM/30 ML UDCUP PO SCH ×4 (08:55→22:02)
[2021-02-23] MEDS: SODIUM BICARBONATE 650 MG TABLET PO SCH ×3 (08:56→22:02)
[2021-02-23] MEDS: DOCUSATE SODIUM 100 MG CAPSULE PO SCH ×2 (08:56→22:02)
[2021-02-23] MEDS: methylPREDNISolone SOD SUC 125 MG/2 ML VIAL IV SCH (08:56)
[2021-02-23] MEDS: PANTOPRAZOLE 40 MG TABLET PO SCH (08:56)
[2021-02-23] MEDS: FUROSEMIDE 40 MG TABLET PO SCH ×2 (08:56→16:34)
[2021-02-23] MEDS: RIFAXIMIN 550 MG TABLET PO SCH ×3 (08:56→22:02)
[2021-02-23] MEDS: SILVER SULFADIAZINE 1% CREAM 25 GM TUBE TOP SCH (08:57)
[2021-02-23] MEDS: DESITIN 4OZ/NYSTATIN 15 GRAM MIXTURE PASTE TOP SCH ×2 (08:57→22:03)
[2021-02-23] MEDS: WHITE PETROLATUM 30 GM TUBE TOP SCH ×3 (08:57→22:03)
[2021-02-23] MEDS: SKIN HEALING OINT (AQUAPHOR) 50 GM TUBE TOP SCH ×3 (08:57→22:03)
[2021-02-23] MEDS ORDERED: SODIUM CHLORIDE 0.9% 1,000 ML IV PRN (09:02)
[2021-02-23] MEDS: TRIAMCINOLONE 0.1% OINT 80 GM TUBE TOP SCH ×2 (11:40→22:03)
[2021-02-23] MEDS: ALBUMIN 25% 12.5 GM/50 ML VIAL IV SCH (12:22)
[2021-02-23] MEDS: MYLANTA/LIDO VISC 2:1 300 ML BOTTLE SWISH/SWAL PRN (17:03)
[2021-02-23 18:09] LABS: Hematocrit 22.5 VOL% (35.7-47.0); Hemoglobin 7.3 GM/DL (12.0-16.0)
[2021-02-23 18:44] LABS: Bilirubin,Urine Negative (Negative); Blood, Urine Negative (Negative); Glucose,Urine (UA) Negative (Negative); Hyaline Casts,Urine 12 /LPF (0-3); Ketones,Urine Negative (Negative); Mucus,Urine Occasional /LPF (Occasional); Nitrite,Urine Negative (Negative); Protein,Urine Negative; Squamous Epithelial Cell,Urine Occasional /HPF (0-10); Urine Appearance CLEAR (Clear); Urine Color Yellow (Yellow); Urine Specific Gravity 1.012 (1.001-1.035); Urine Urobilinogen < 2.0 EU/DL (0.2-1.0)
[2021-02-24] MEDS: MEROPENEM 500 MG in SODIUM CHLORIDE 0.9% 100 ML IV SCH (00:58)
[2021-02-24] MEDS: SODIUM CHLORIDE 0.45% 1,000 ML IV SCH (05:25)
[2021-02-24] MEDS: LEVOTHYROXINE 100 MCG TABLET PO SCH (05:31)
[2021-02-24 06:22] LABS: Basophils % 0.2 % (0.0-0.8); Hematocrit 23.4 VOL% (35.7-47.0); Hemoglobin 7.4 GM/DL (12.0-16.0); Immature Granulocytes % 0.5 %; Immature Granulocytes Absolute 0.02 #; Lymphocytes # 0.8 10*3/uL (1.4-4.0); Lymphocytes % 19.9 % (21.3-54.2); Mean Corpuscular HGB Conc 31.6 GM/DL (32-36); Monocytes % 6.8 % (1.7-12.7); Neutrophils % 72.6 % (38.7-73.9); Red Blood Count 2.34 MC/CUMM (3.8-5.5); Red Cell Distribution Width 20.7 % (9.3-17.3); White Blood Count 4.1 T/CUMM (4-12)
[2021-02-24 06:24] LABS: Platelet Count 12 T/CUMM (130-400)
[2021-02-24 06:36] LABS: Calcium 9.3 MG/DL (8.5-10.1); Osmolality,Calculated 312.6 MOS/KG (273-304); Potassium 4.7 MMOL/L (3.5-5.1)
[2021-02-24 06:46] LABS: Acanthocytes Few; Hypochromasia 1+; Microcytosis 1+; Platelet Estimate Decreased
[2021-02-24 06:49] LABS: Albumin 2.6 G/DL (3.4-5.0); Bilirubin,Total 7.7 MG/DL (0.20-1.00); Calcium 9.3 MG/DL (8.5-10.1); Osmolality,Calculated 311.6 MOS/KG (273-304); Potassium 4.8 MMOL/L (3.5-5.1)
[2021-02-24] MEDS: MULTIVITAMIN (CENTRUM) TABLET PO SCH (08:40)
[2021-02-24] MEDS: DOCUSATE SODIUM 100 MG CAPSULE PO SCH ×2 (08:40→21:02)
[2021-02-24] MEDS: methylPREDNISolone SOD SUC 125 MG/2 ML VIAL IV SCH (08:40)
[2021-02-24] MEDS: SODIUM BICARBONATE 650 MG TABLET PO SCH ×3 (08:40→21:01)
[2021-02-24] MEDS: PANTOPRAZOLE 40 MG TABLET PO SCH (08:40)
[2021-02-24] MEDS: POTASSIUM CHLORIDE 20 MEQ TABLET PO SCH (08:40)
[2021-02-24] MEDS: MIDODRINE 2.5 MG TABLET PO SCH ×3 (08:40→21:02)
[2021-02-24] MEDS: WHITE PETROLATUM 30 GM TUBE TOP SCH ×3 (08:41→21:02)
[2021-02-24] MEDS: LACTULOSE 20 GM/30 ML UDCUP PO SCH ×6 (08:41→23:15)
[2021-02-24] MEDS: SKIN HEALING OINT (AQUAPHOR) 50 GM TUBE TOP SCH ×3 (08:41→21:02)
[2021-02-24] MEDS: DESITIN 4OZ/NYSTATIN 15 GRAM MIXTURE PASTE TOP SCH ×2 (08:41→21:02)
[2021-02-24] MEDS: TRIAMCINOLONE 0.1% OINT 80 GM TUBE TOP SCH ×2 (08:41→21:02)
[2021-02-24] MEDS: RIFAXIMIN 550 MG TABLET PO SCH ×3 (08:43→21:01)
[2021-02-24] MEDS: SILVER SULFADIAZINE 1% CREAM 25 GM TUBE TOP SCH (08:44)
[2021-02-24] MEDS ORDERED: SODIUM BICARB IV ONE (09:30)
[2021-02-24] MEDS: LACTATED RINGERS 1,000 ML IV SCH (09:53)
[2021-02-24] MEDS ORDERED: SODIUM CHLORIDE 0.9% 1,000 ML IV PRN (10:10)
[2021-02-24] MEDS ORDERED: FUROSEMIDE 40 MG/4 ML VIAL IV ONE (12:13)
[2021-02-24] MEDS ORDERED: traMADol 50 MG TABLET PO PRN (15:35)
[2021-02-24] MEDS ORDERED: FUROSEMIDE 20 MG/2 ML VIAL ONE (18:15)
[2021-02-25] MEDS: LACTULOSE 20 GM/30 ML UDCUP PO SCH ×6 (03:16→23:30)
[2021-02-25 03:46] LABS: ABG Base Excess -7.5 MMOL/L (-2.5-2.5); ABG HCO3 18.2 MMOL/L (20-26); ABG Oxygen Saturation 96.9 % (95-100); ABG PCO2 31.9 MM HG (35-48); ABG PH 7.344 (7.35-7.45); ABG PO2 90.8 MM HG (80-95); ABG TCO2 16.2 MMOL/L (23-27); Allen Test Positive; Pt O2 Delivery Device Room Air
[2021-02-25] MEDS: LEVOTHYROXINE 100 MCG TABLET PO SCH (05:49)
[2021-02-25 06:15] LABS: Basophils % 0.1 % (0.0-0.8); Hematocrit 24.7 VOL% (35.7-47.0); Hemoglobin 8.3 GM/DL (12.0-16.0); Immature Granulocytes % 0.3 %; Immature Granulocytes Absolute 0.02 #; Lymphocytes # 0.8 10*3/uL (1.4-4.0); Lymphocytes % 10.6 % (21.3-54.2); Mean Corpuscular HGB Conc 33.6 GM/DL (32-36); Mean Corpuscular Volume 91.5 FL (87-102); Mean Platelet Volume 11.7 FL (9.6-12.0); Monocytes % 12.3 % (1.7-12.7); Neutrophils % 76.7 % (38.7-73.9); Platelet Count 43 T/CUMM (130-400); Red Cell Distribution Width 19.2 % (9.3-17.3); White Blood Count 7.5 T/CUMM (4-12)
[2021-02-25 06:30] LABS: Calcium 10.2 MG/DL (8.5-10.1); Osmolality,Calculated 333.2 MOS/KG (273-304); Potassium 4.2 MMOL/L (3.5-5.1)
[2021-02-25 06:32] LABS: Bilirubin,Total 8.1 MG/DL (0.20-1.00); Calcium 10.2 MG/DL (8.5-10.1); Osmolality,Calculated 333.2 MOS/KG (273-304); Potassium 4.2 MMOL/L (3.5-5.1); Total Protein 4.2 G/DL (6.4-8.2)
[2021-02-25] MEDS: MIDODRINE 2.5 MG TABLET PO SCH ×3 (10:06→22:02)
[2021-02-25] MEDS: PANTOPRAZOLE 40 MG TABLET PO SCH (10:06)
[2021-02-25] MEDS: DESITIN 4OZ/NYSTATIN 15 GRAM MIXTURE PASTE TOP SCH ×2 (10:06→23:24)
[2021-02-25] MEDS: SKIN HEALING OINT (AQUAPHOR) 50 GM TUBE TOP SCH ×3 (10:06→23:23)
[2021-02-25] MEDS: MULTIVITAMIN (CENTRUM) TABLET PO SCH (10:06)
[2021-02-25] MEDS: DOCUSATE SODIUM 100 MG CAPSULE PO SCH ×2 (10:06→22:02)
[2021-02-25] MEDS: TRIAMCINOLONE 0.1% OINT 80 GM TUBE TOP SCH ×2 (10:06→23:28)
[2021-02-25] MEDS: SILVER SULFADIAZINE 1% CREAM 25 GM TUBE TOP SCH (10:06)
[2021-02-25] MEDS: POTASSIUM CHLORIDE 20 MEQ TABLET PO SCH (10:06)
[2021-02-25] MEDS: SODIUM BICARBONATE 650 MG TABLET PO SCH ×3 (10:06→22:04)
[2021-02-25] MEDS: RIFAXIMIN 550 MG TABLET PO SCH ×3 (10:07→22:04)
[2021-02-25] MEDS: methylPREDNISolone SOD SUC 125 MG/2 ML VIAL IV SCH (10:07)
[2021-02-25] MEDS: WHITE PETROLATUM 30 GM TUBE TOP SCH ×3 (10:07→23:24)
[2021-02-25] MEDS ORDERED: traZODone 50 MG TABLET PO ONE (10:55)
[2021-02-25] MEDS ORDERED: FUROSEMIDE 40 MG/4 ML VIAL ONE (16:42)
[2021-02-25] MEDS ORDERED: FUROSEMIDE 40 MG/4 ML VIAL IV ONE (16:45)
[2021-02-25 17:08] LABS: ABG Base Excess -12.6 MMOL/L (-2.5-2.5); ABG HCO3 14.5 MMOL/L (20-26); ABG Oxygen Saturation 99.3 % (95-100); ABG PCO2 44.3 MM HG (35-48)
[2021-02-25 17:10] LABS: Hematocrit 24.6 VOL% (35.7-47.0); Hemoglobin 7.9 GM/DL (12.0-16.0); Immature Granulocytes % 0.4 %; Immature Granulocytes Absolute 0.03 #; Lymphocytes % 12.9 % (21.3-54.2); Mean Corpuscular HGB Conc 32.1 GM/DL (32-36); Mean Corpuscular Volume 93.9 FL (87-102); Mean Platelet Volume 10.4 FL (9.6-12.0); Monocytes % 16.5 % (1.7-12.7); Neutrophils % 70.2 % (38.7-73.9); Platelet Count 42 T/CUMM (130-400); Red Blood Count 2.62 MC/CUMM (3.8-5.5); Red Cell Distribution Width 19.7 % (9.3-17.3); White Blood Count 7.8 T/CUMM (4-12)
[2021-02-25 17:13] LABS: ABG PH 7.155 (7.35-7.45)
[2021-02-25] MEDS ORDERED: HALOPERIDOL 5 MG/ML AMP ONE (17:14)
[2021-02-25] MEDS ORDERED: SODIUM BICARBONATE 50 MEQ/50 ML VIAL IV ONE ×2 (17:15→17:17)
[2021-02-25] MEDS ORDERED: HALOPERIDOL 5 MG/ML AMP IM ONE (17:16)
[2021-02-25] MEDS ORDERED: HALOPERIDOL 5 MG/ML AMP IM PRN (17:17)
[2021-02-25 17:30] LABS: Partial Thromboplastin Time 66.3 SECS (23.8-32.1)
[2021-02-25 17:31] LABS: Lymphocytes 11 % (20-55); Segmented Neutrophils 83 % (50-85); Total Cells Counted 100
[2021-02-25 17:37] LABS: PT Patient Result 26.6 SECS (10.5-12.0)
[2021-02-25 17:38] LABS: INR 2.5
[2021-02-25 17:40] LABS: Acanthocytes 3+; Anisocytosis 2+; Poikilocytosis 1+
[2021-02-25 17:42] LABS: Alanine Aminotransferase 46 U/L (13-56); Albumin 3.1 G/DL (3.4-5.0); Alkaline Phosphatase 137 U/L (45-117); Aspartate Amino Transferase 75 U/L (0-37); Basophilic Stippling Few; Blood Urea Nitrogen 79 MG/DL (7-18); Calcium 10.4 MG/DL (8.5-10.1); Carbon Dioxide 15 MMOL/L (21-32); Estimated Glom Filtration Rate 15 ML/MIN; Glucose 211 MG/DL (74-106); Polychromasia Few; Potassium 4.3 MMOL/L (3.5-5.1); Sodium 157 MMOL/L (136-145); Total Protein 4.2 G/DL (6.4-8.2)
[2021-02-25 17:43] LABS: Platelet Estimate Adequate
[2021-02-25 17:50] LABS: Free T4 (Free Thyroxine) 0.73 NG/DL (0.76-1.46); Thyroid Stimulating Hormone 0.358 uIU/ml (0.358-3.74)
[2021-02-25] MEDS ORDERED: ALBUTEROL 2.5 MG/3 ML NEB RESP TX PRN (17:56)
[2021-02-25] MEDS ORDERED: MIDAZOLAM 10 MG/2 ML VIAL ONE ×2 (17:57)
[2021-02-25] MEDS ORDERED: ETOMIDATE 20 MG/10 ML VIAL IV ONE ×2 (17:58→18:05)
[2021-02-25] MEDS: ALBUMIN 25% 25 GM/100 ML VIAL IV SCH (17:59)
[2021-02-25] MEDS ORDERED: PANTOPRAZOLE 40 MG VIAL IV SCH (18:00)
[2021-02-25] MEDS: MIDAZOLAM 100 MG in SODIUM CHLORIDE 0.9% 80 ML IV PRN (18:30)
[2021-02-25] MEDS ORDERED: LACTATED RINGERS 1,000 ML IV ONE (18:33)
[2021-02-25] MEDS: INSULIN REGULAR 100 UNIT/ML SUBCUT SCH (18:44)
[2021-02-25] MEDS: FAMOTIDINE 20 MG/2 ML VIAL IV SCH (18:44)
[2021-02-25] MEDS: methylPREDNISolone SOD SUC 40 MG/1 ML VIAL IV SCH (18:45)
[2021-02-25] MEDS ORDERED: PHENYLEPHRINE DRIP 40 MG/250 ML PREMIX IV PRN (18:51)
[2021-02-25 21:25] LABS: ABG Base Excess -7.6 MMOL/L (-2.5-2.5); ABG HCO3 18.2 MMOL/L (20-26); ABG Oxygen Saturation 94.4 % (95-100); ABG PCO2 37.8 MM HG (35-48); ABG PH 7.294 (7.35-7.45); ABG PO2 83.3 MM HG (80-95); ABG TCO2 17.4 MMOL/L (23-27)
[2021-02-25] MEDS: MEROPENEM 500 MG in SODIUM CHLORIDE 0.9% 100 ML IV SCH (22:03)
[2021-02-25] MEDS: SODIUM BICARB INJ 50 MEQ in DEXTROSE 5% NACL 0.45% 1,000 ML IV SCH (23:32)
[2021-02-26] MEDS ORDERED: PHENYLEPHRINE INJ 160 MG in SODIUM CHLORIDE 0.9% 234 ML IV PRN (00:25)
[2021-02-26] MEDS ORDERED: IMMUNE GLOBULIN 10% 20 GM, IMMUNE GLOBULIN 10% 10 GM, IMMUNE GLOBULIN 10% 5 GM in PREMI... IV ONE (09:00)
[2021-02-26] MEDS ORDERED: methylPREDNISolone SOD SUC 40 MG/1 ML VIAL IV SCH (09:00)
[2021-02-26] MEDS: ALBUMIN 25% 25 GM/100 ML VIAL IV SCH (12:55)
[2021-02-26] MEDS: methylPREDNISolone SOD SUC 40 MG/1 ML VIAL IV SCH ×2 (12:56→18:20)
[2021-02-26] MEDS: LACTULOSE 20 GM/30 ML UDCUP PO SCH ×5 (12:56→23:51)
[2021-02-26] MEDS: INSULIN REGULAR 100 UNIT/ML SUBCUT SCH ×5 (12:57→23:51)
[2021-02-26] MEDS: MEROPENEM 500 MG in SODIUM CHLORIDE 0.9% 100 ML IV SCH ×2 (12:57→20:32)
[2021-02-26] MEDS: LEVOTHYROXINE 100 MCG TABLET PO SCH (12:57)
[2021-02-26] MEDS: SKIN HEALING OINT (AQUAPHOR) 50 GM TUBE TOP SCH ×2 (12:58→14:37)
[2021-02-26] MEDS: SODIUM BICARB INJ 50 MEQ in DEXTROSE 5% NACL 0.45% 1,000 ML IV SCH (13:00)
[2021-02-26] MEDS: TRIAMCINOLONE 0.1% OINT 80 GM TUBE TOP SCH (13:01)
[2021-02-26] MEDS: MULTIVITAMIN (CENTRUM) TABLET PO SCH (13:01)
[2021-02-26] MEDS: DOCUSATE SODIUM 100 MG CAPSULE PO SCH ×2 (13:01→20:32)
[2021-02-26] MEDS: POTASSIUM CHLORIDE 20 MEQ TABLET PO SCH (13:01)
[2021-02-26] MEDS: SILVER SULFADIAZINE 1% CREAM 25 GM TUBE TOP SCH (13:02)
[2021-02-26] MEDS: MIDODRINE 2.5 MG TABLET PO SCH (13:02)
[2021-02-26] MEDS: WHITE PETROLATUM 30 GM TUBE TOP SCH ×3 (13:02→20:35)
[2021-02-26] MEDS: DESITIN 4OZ/NYSTATIN 15 GRAM MIXTURE PASTE TOP SCH (13:02)
[2021-02-26] MEDS: RIFAXIMIN 550 MG TABLET PO SCH ×3 (13:02→20:32)
[2021-02-26] MEDS: SODIUM BICARBONATE 650 MG TABLET PO SCH ×3 (13:02→20:32)
[2021-02-26] MEDS ORDERED: SODIUM CHLORIDE 0.9% 1,000 ML IV PRN (13:21)
[2021-02-26 13:23] LABS: ABG Base Excess -7.5 MMOL/L (-2.5-2.5); ABG HCO3 18.2 MMOL/L (20-26); ABG Oxygen Saturation 98.1 % (95-100); ABG PCO2 30.8 MM HG (35-48); ABG PH 7.356 (7.35-7.45); ABG TCO2 16.4 MMOL/L (23-27)
[2021-02-26 13:38] LABS: Hematocrit 20.6 VOL% (35.7-47.0); Hemoglobin 6.9 GM/DL (12.0-16.0); Immature Granulocytes % 0.6 %; Immature Granulocytes Absolute 0.05 #; Lymphocytes # 0.8 10*3/uL (1.4-4.0); Lymphocytes % 8.6 % (21.3-54.2); Mean Corpuscular HGB Conc 33.5 GM/DL (32-36); Mean Corpuscular Volume 91.2 FL (87-102); Mean Platelet Volume 12.2 FL (9.6-12.0); Monocytes % 22.8 % (1.7-12.7); NRBC # 0.12 10*3/uL; Platelet Count 46 T/CUMM (130-400); Red Blood Count 2.26 MC/CUMM (3.8-5.5); Red Cell Distribution Width 19.4 % (9.3-17.3); White Blood Count 8.8 T/CUMM (4-12)
[2021-02-26 13:44] LABS: Albumin 3.4 G/DL (3.4-5.0); Calcium 10.2 MG/DL (8.5-10.1); Osmolality,Calculated 338.2 MOS/KG (273-304); Potassium 4.7 MMOL/L (3.5-5.1); Total Protein 4.8 G/DL (6.4-8.2)
[2021-02-26 14:36] LABS: INR 3.2; PT Patient Result 32.8 SECS (10.5-12.0)
[2021-02-26] MEDS: MIDODRINE 5 MG TABLET PO SCH ×2 (14:37→20:32)
[2021-02-26] MEDS ORDERED: VANCOMYCIN INJ 2,000 MG in SODIUM CHLORIDE 0.9% 500 ML IV ONE (15:00)
[2021-02-26 15:02] LABS: INR 2.8; PT Patient Result 28.7 SECS (10.5-12.0)
[2021-02-26 17:26] LABS: Band Neutrophils 1 % (0-10); Eosinophils 0 % (0-10); Lymphocytes 17 % (20-55); Segmented Neutrophils 62 % (50-85)
[2021-02-26 17:27] LABS: Anisocytosis 2+; Burr Cells 1+; Hypochromasia Slight; Macrocytosis Slight; Platelet Estimate Decreased; Target Cells Few; Total Cells Counted 100
[2021-02-26] MEDS: FAMOTIDINE 20 MG/2 ML VIAL IV SCH (18:20)
[2021-02-26 18:34] LABS: Bilirubin,Urine Negative (Negative); Blood, Urine Large mg/dL (Negative); Glucose,Urine (UA) Negative (Negative); Hyaline Casts,Urine 7 /LPF (0-3); Ketones,Urine 5 mg/dL (Negative); Mucus,Urine Occasional /LPF (Occasional); Nitrite,Urine Negative (Negative); Protein,Urine 100 MG/DL; RBC,Urine 290 /HPF (0-4); Squamous Epithelial Cell,Urine Occasional /HPF (0-10); Urine Appearance CLOUDY (Clear); Urine Color Amber (Yellow); Urine Specific Gravity 1.018 (1.001-1.035); Urine Urobilinogen < 2.0 EU/DL (0.2-1.0)
[2021-02-26] MEDS: NOREPINEPHRINE 16 MG in SODIUM CHLORIDE 0.9% 234 ML IV PRN (19:00)
[2021-02-26] MEDS: fentaNYL INJ 1,250 MCG in SODIUM CHLORIDE 0.9% 225 ML IV PRN (19:00)
[2021-02-26 21:38] LABS: Hematocrit 25.3 VOL% (35.7-47.0)
[2021-02-27] MEDS: SODIUM BICARB INJ 50 MEQ in SODIUM CHLORIDE 0.45% 1,000 ML IV SCH ×3 (00:52→17:28)
[2021-02-27] MEDS: methylPREDNISolone SOD SUC 40 MG/1 ML VIAL IV SCH ×3 (01:13→17:27)
[2021-02-27] MEDS: DESITIN 4OZ/NYSTATIN 15 GRAM MIXTURE PASTE TOP SCH ×3 (02:00→21:15)
[2021-02-27] MEDS: SILVER SULFADIAZINE 1% CREAM 25 GM TUBE TOP SCH ×3 (02:00→21:21)
[2021-02-27] MEDS: SKIN HEALING OINT (AQUAPHOR) 50 GM TUBE TOP SCH ×4 (02:00→21:19)
[2021-02-27] MEDS: TRIAMCINOLONE 0.1% CREAM 80 GM TUBE TOP SCH ×3 (02:00→21:15)
[2021-02-27] MEDS: fentaNYL INJ 1,250 MCG in SODIUM CHLORIDE 0.9% 225 ML IV PRN ×4 (02:11→21:56)
[2021-02-27] MEDS: MIDAZOLAM 100 MG in SODIUM CHLORIDE 0.9% 80 ML IV PRN ×2 (03:35→22:26)
[2021-02-27] MEDS: LACTULOSE 20 GM/30 ML UDCUP PO SCH ×5 (04:25→21:04)
[2021-02-27 04:28] LABS: Hematocrit 23.7 VOL% (35.7-47.0); Hemoglobin 7.7 GM/DL (12.0-16.0); Immature Granulocytes % 0.6 %; Immature Granulocytes Absolute 0.04 #; Lymphocytes # 0.9 10*3/uL (1.4-4.0); Lymphocytes % 14.9 % (21.3-54.2); Mean Corpuscular HGB Conc 32.5 GM/DL (32-36); Mean Corpuscular Volume 93.3 FL (87-102); Monocytes % 11.4 % (1.7-12.7); NRBC # 0.04 10*3/uL; Neutrophils % 73.1 % (38.7-73.9); Red Blood Count 2.54 MC/CUMM (3.8-5.5); Red Cell Distribution Width 18.8 % (9.3-17.3); White Blood Count 6.2 T/CUMM (4-12)
[2021-02-27 04:30] LABS: ABG Base Excess -10.1 MMOL/L (-2.5-2.5); ABG HCO3 14.4 MMOL/L (20-26); ABG Oxygen Saturation 97.4 % (95-100); ABG PCO2 26.6 MM HG (35-48); ABG PH 7.352 (7.35-7.45); ABG PO2 107.6 MM HG (80-95); ABG TCO2 15.2 MMOL/L (23-27)
[2021-02-27 04:35] LABS: Platelet Count 20 T/CUMM (130-400)
[2021-02-27 04:47] LABS: Hypochromasia 1+; Microcytosis 1+; Platelet Estimate Decreased
[2021-02-27 04:54] LABS: Albumin 2.9 G/DL (3.4-5.0); Bilirubin,Total 7.9 MG/DL (0.20-1.00); Calcium 9.4 MG/DL (8.5-10.1); Osmolality,Calculated 336.4 MOS/KG (273-304); Total Protein 4.5 G/DL (6.4-8.2)
[2021-02-27 05:28] LABS: INR 3.5
[2021-02-27] MEDS: LEVOTHYROXINE 100 MCG TABLET PO SCH (05:40)
[2021-02-27] MEDS: INSULIN REGULAR 100 UNIT/ML SUBCUT SCH ×3 (05:40→17:27)
[2021-02-27] MEDS ORDERED: ALBUMIN 5% 12.5 GM/250 ML VIAL IV ONE (07:00)
[2021-02-27] MEDS: MEROPENEM 500 MG in SODIUM CHLORIDE 0.9% 100 ML IV SCH ×2 (08:45→21:03)
[2021-02-27] MEDS: DOCUSATE SODIUM 100 MG CAPSULE PO SCH ×2 (08:46→21:04)
[2021-02-27] MEDS: RIFAXIMIN 550 MG TABLET PO SCH ×3 (08:47→21:03)
[2021-02-27] MEDS: MIDODRINE 5 MG TABLET PO SCH ×3 (08:47→21:03)
[2021-02-27] MEDS: POTASSIUM CHLORIDE 20 MEQ TABLET PO SCH (08:47)
[2021-02-27] MEDS: SODIUM BICARBONATE 650 MG TABLET PO SCH ×3 (08:48→21:03)
[2021-02-27] MEDS: MULTIVITAMIN (CENTRUM) TABLET PO SCH (08:48)
[2021-02-27] MEDS: IMMUNE GLOBULIN 10% 20 GM in PREMIX 1 EACH IV SCH (08:50)
[2021-02-27] MEDS: WHITE PETROLATUM 30 GM TUBE TOP SCH ×3 (08:54→21:19)
[2021-02-27] MEDS ORDERED: SALIVA SUBSTITUTE SPRAY 60 ML CAN SWISH/SWAL PRN (08:56)
[2021-02-27 09:48] LABS: Hematocrit 22.2 VOL% (35.7-47.0); Hemoglobin 7.1 GM/DL (12.0-16.0)
[2021-02-27 09:51] LABS: Platelet Count 22 T/CUMM (130-400)
[2021-02-27] MEDS ORDERED: SODIUM CHLORIDE 0.9% 1,000 ML IV PRN (11:09)
[2021-02-27] MEDS ORDERED: FERRIC SUBSULFATE TOP ONE (11:55)
[2021-02-27] MEDS ORDERED: LIDOCAINE 2% TOP JELLY 5 ML TUBE TOP ONE (11:55)
[2021-02-27] MEDS ORDERED: LIDOCAINE 1% 20 ML VIAL MISC INJ ONE (11:55)
[2021-02-27] MEDS: FAMOTIDINE 20 MG/2 ML VIAL IV SCH (17:27)
[2021-02-27 20:10] LABS: Hematocrit 25.3 VOL% (35.7-47.0); Hemoglobin 8.2 GM/DL (12.0-16.0); Immature Granulocytes % 0.5 %; Immature Granulocytes Absolute 0.03 #; Lymphocytes # 1.3 10*3/uL (1.4-4.0); Lymphocytes % 22.6 % (21.3-54.2); Mean Corpuscular HGB Conc 32.4 GM/DL (32-36); Mean Platelet Volume 10.4 FL (9.6-12.0); NRBC # 0.04 10*3/uL; Neutrophils % 70.9 % (38.7-73.9); Red Blood Count 2.78 MC/CUMM (3.8-5.5); Red Cell Distribution Width 18.4 % (9.3-17.3); White Blood Count 5.6 T/CUMM (4-12)
[2021-02-27 20:17] LABS: Platelet Count 16 T/CUMM (130-400)
[2021-02-27] MEDS: MINERAL OIL/PETROLATUM OPH OINT 3.5 GM TUBE BOTH EYES SCH (21:14)
[2021-02-27 21:47] LABS: Hepatitis B Core IgM Quant 0.13 Index; Hepatitis B Surface Ag Quant < 0.10 Index; Hepatitis B Surface Ag Result Non-Reactive (NonReactive); Hepatitis C Virus Ab Quant 0.18 Index; Hepatitis C Virus Ab Result Non-Reactive (NonReactive)
[2021-02-28] MEDS: INSULIN REGULAR 100 UNIT/ML SUBCUT SCH ×4 (00:36→18:17)
[2021-02-28] MEDS: SODIUM BICARB INJ 50 MEQ in SODIUM CHLORIDE 0.45% 1,000 ML IV SCH ×4 (01:46→18:11)
[2021-02-28] MEDS: LACTULOSE 20 GM/30 ML UDCUP PO SCH ×6 (01:47→21:03)
[2021-02-28] MEDS: methylPREDNISolone SOD SUC 40 MG/1 ML VIAL IV SCH ×3 (02:10→17:36)
[2021-02-28 03:45] LABS: ABG Base Excess -5.2 MMOL/L (-2.5-2.5); ABG HCO3 20.1 MMOL/L (20-26); ABG Oxygen Saturation 98.2 % (95-100); ABG PCO2 29.4 MM HG (35-48); ABG PH 7.409 (7.35-7.45); ABG TCO2 17.2 MMOL/L (23-27)
[2021-02-28 04:03] LABS: Hematocrit 25.6 VOL% (35.7-47.0); Hemoglobin 8.4 GM/DL (12.0-16.0); Immature Granulocytes % 0.8 %; Immature Granulocytes Absolute 0.05 #; Lymphocytes # 1.1 10*3/uL (1.4-4.0); Lymphocytes % 16.5 % (21.3-54.2); Mean Corpuscular HGB Conc 32.8 GM/DL (32-36); Mean Corpuscular Volume 89.5 FL (87-102); Mean Platelet Volume 11.7 FL (9.6-12.0); Monocytes % 7.7 % (1.7-12.7); NRBC # 0.04 10*3/uL; Red Blood Count 2.86 MC/CUMM (3.8-5.5); Red Cell Distribution Width 18.6 % (9.3-17.3); White Blood Count 6.4 T/CUMM (4-12)
[2021-02-28 04:05] LABS: Albumin 2.9 G/DL (3.4-5.0); Bilirubin,Total 6.9 MG/DL (0.20-1.00); Calcium 8.6 MG/DL (8.5-10.1); Osmolality,Calculated 335.7 MOS/KG (273-304); Potassium 4.6 MMOL/L (3.5-5.1); Total Protein 4.9 G/DL (6.4-8.2)
[2021-02-28 04:06] LABS: Platelet Count 26 T/CUMM (130-400)
[2021-02-28] MEDS: fentaNYL INJ 1,250 MCG in SODIUM CHLORIDE 0.9% 225 ML IV PRN ×3 (04:10→20:00)
[2021-02-28 04:21] LABS: Hypochromasia 1+; Microcytosis 1+; Platelet Estimate Decreased
[2021-02-28] MEDS: LEVOTHYROXINE 100 MCG TABLET PO SCH (05:47)
[2021-02-28] MEDS: IMMUNE GLOBULIN 10% 20 GM in PREMIX 1 EACH IV SCH (07:55)
[2021-02-28] MEDS ORDERED: HEPARIN 10,000 UNIT/10 ML VIAL IV PRN (09:34)
[2021-02-28] MEDS: MEROPENEM 500 MG in SODIUM CHLORIDE 0.9% 100 ML IV SCH ×2 (10:39→21:03)
[2021-02-28] MEDS: MULTIVITAMIN (CENTRUM) TABLET PO SCH (10:40)
[2021-02-28] MEDS: SODIUM BICARBONATE 650 MG TABLET PO SCH ×3 (10:40→21:03)
[2021-02-28] MEDS: RIFAXIMIN 550 MG TABLET PO SCH ×3 (10:40→21:03)
[2021-02-28] MEDS: POTASSIUM CHLORIDE 20 MEQ TABLET PO SCH (10:40)
[2021-02-28] MEDS: MIDODRINE 5 MG TABLET PO SCH ×3 (10:40→21:04)
[2021-02-28] MEDS: SILVER SULFADIAZINE 1% CREAM 25 GM TUBE TOP SCH ×2 (10:41→21:05)
[2021-02-28] MEDS: DOCUSATE SODIUM 100 MG CAPSULE PO SCH ×2 (10:41→21:04)
[2021-02-28] MEDS: TRIAMCINOLONE 0.1% CREAM 80 GM TUBE TOP SCH ×2 (10:41→21:05)
[2021-02-28] MEDS: SKIN HEALING OINT (AQUAPHOR) 50 GM TUBE TOP SCH ×3 (10:41→21:05)
[2021-02-28] MEDS: DESITIN 4OZ/NYSTATIN 15 GRAM MIXTURE PASTE TOP SCH ×2 (10:42→21:05)
[2021-02-28] MEDS: WHITE PETROLATUM 30 GM TUBE TOP SCH ×3 (10:42→21:04)
[2021-02-28] MEDS: LACTATED RINGERS 1,000 ML IV SCH (11:07)
[2021-02-28] MEDS: NOREPINEPHRINE 16 MG in SODIUM CHLORIDE 0.9% 234 ML IV PRN (15:01)
[2021-02-28] MEDS: ALBUMIN 25% 12.5 GM/50 ML VIAL IV SCH ×2 (16:13→23:11)
[2021-02-28] MEDS: MIDAZOLAM 100 MG in SODIUM CHLORIDE 0.9% 80 ML IV PRN (16:52)
[2021-02-28] MEDS ORDERED: VANCOMYCIN INJ 750 MG in SODIUM CHLORIDE 0.9% 250 ML IV ONE (17:00)
[2021-02-28] MEDS: METOCLOPRAMIDE 10 MG/2 ML VIAL IV SCH ×2 (17:35→21:28)
[2021-02-28] MEDS: MICAFUNGIN 100 MG in SODIUM CHLORIDE 0.9% 100 ML IV SCH (17:36)
[2021-02-28] MEDS: FAMOTIDINE 20 MG/2 ML VIAL IV SCH (17:36)
[2021-02-28] MEDS ORDERED: VANCOMYCIN INJ 1,750 MG in SODIUM CHLORIDE 0.9% 500 ML IV ONE (18:00)
[2021-02-28] MEDS: MINERAL OIL/PETROLATUM OPH OINT 3.5 GM TUBE BOTH EYES SCH (21:05)
[2021-03-01] MEDS: LACTULOSE 20 GM/30 ML UDCUP PO SCH ×6 (00:21→20:18)
[2021-03-01] MEDS: INSULIN REGULAR 100 UNIT/ML SUBCUT SCH ×4 (00:21→18:22)
[2021-03-01] MEDS: SODIUM BICARB INJ 50 MEQ in SODIUM CHLORIDE 0.45% 1,000 ML IV SCH ×3 (01:52→17:03)
[2021-03-01] MEDS: methylPREDNISolone SOD SUC 40 MG/1 ML VIAL IV SCH ×3 (02:35→18:23)
[2021-03-01] MEDS: fentaNYL INJ 1,250 MCG in SODIUM CHLORIDE 0.9% 225 ML IV PRN ×3 (03:05→19:08)
[2021-03-01 04:54] LABS: Hematocrit 21.8 VOL% (35.7-47.0); Hemoglobin 7.2 GM/DL (12.0-16.0); Immature Granulocytes % 1.4 %; Immature Granulocytes Absolute 0.08 #; Lymphocytes # 0.9 10*3/uL (1.4-4.0); Lymphocytes % 16.4 % (21.3-54.2); Mean Corpuscular Volume 89.3 FL (87-102); Mean Platelet Volume 12.3 FL (9.6-12.0); Monocytes % 12.5 % (1.7-12.7); Neutrophils % 69.7 % (38.7-73.9); Red Blood Count 2.44 MC/CUMM (3.8-5.5); Red Cell Distribution Width 18.6 % (9.3-17.3); White Blood Count 5.6 T/CUMM (4-12)
[2021-03-01 05:15] LABS: Platelet Count 15 T/CUMM (130-400)
[2021-03-01] MEDS: METOCLOPRAMIDE 10 MG/2 ML VIAL IV SCH ×4 (05:31→21:03)
[2021-03-01 05:34] LABS: Hypochromasia 1+; Microcytosis 1+; Platelet Estimate Decreased
[2021-03-01 05:38] LABS: Albumin 2.6 G/DL (3.4-5.0); Calcium 7.9 MG/DL (8.5-10.1); Osmolality,Calculated 317.6 MOS/KG (273-304); Potassium 4.2 MMOL/L (3.5-5.1); Total Protein 4.7 G/DL (6.4-8.2)
[2021-03-01] MEDS: LEVOTHYROXINE 100 MCG TABLET PO SCH (06:19)
[2021-03-01] MEDS: MULTIVITAMIN (CENTRUM) TABLET PO SCH (10:00)
[2021-03-01] MEDS: DOCUSATE SODIUM 100 MG CAPSULE PO SCH ×2 (10:00→21:01)
[2021-03-01] MEDS: SKIN HEALING OINT (AQUAPHOR) 50 GM TUBE TOP SCH ×2 (10:00→16:31)
[2021-03-01] MEDS: POTASSIUM CHLORIDE 20 MEQ TABLET PO SCH (10:00)
[2021-03-01] MEDS: TRIAMCINOLONE 0.1% CREAM 80 GM TUBE TOP SCH (10:03)
[2021-03-01] MEDS: MIDODRINE 5 MG TABLET PO SCH ×3 (10:03→21:01)
[2021-03-01] MEDS: DESITIN 4OZ/NYSTATIN 15 GRAM MIXTURE PASTE TOP SCH (10:03)
[2021-03-01] MEDS: SILVER SULFADIAZINE 1% CREAM 25 GM TUBE TOP SCH (10:03)
[2021-03-01] MEDS: SODIUM BICARBONATE 650 MG TABLET PO SCH ×3 (10:04→21:01)
[2021-03-01] MEDS: WHITE PETROLATUM 30 GM TUBE TOP SCH ×2 (10:04→16:32)
[2021-03-01] MEDS: RIFAXIMIN 550 MG TABLET PO SCH ×3 (10:04→21:01)
[2021-03-01] MEDS ORDERED: SODIUM CHLORIDE 0.9% 1,000 ML IV PRN ×4 (10:05→17:38)
[2021-03-01] MEDS: ALBUMIN 25% 12.5 GM/50 ML VIAL IV SCH ×2 (11:50→20:17)
[2021-03-01] MEDS: IMMUNE GLOBULIN 10% 20 GM in PREMIX 1 EACH IV SCH (12:02)
[2021-03-01] MEDS: MEROPENEM 500 MG in SODIUM CHLORIDE 0.9% 100 ML IV SCH (12:38)
[2021-03-01] MEDS: MIDAZOLAM 100 MG in SODIUM CHLORIDE 0.9% 80 ML IV PRN (16:30)
[2021-03-01] MEDS ORDERED: VANCOMYCIN INJ 750 MG in SODIUM CHLORIDE 0.9% 250 ML IV PRN (17:00)
[2021-03-01] MEDS: FAMOTIDINE 20 MG/2 ML VIAL IV SCH (18:23)
[2021-03-01] MEDS: MICAFUNGIN 100 MG in SODIUM CHLORIDE 0.9% 100 ML IV SCH (18:23)
[2021-03-01] MEDS: MINERAL OIL/PETROLATUM OPH OINT 3.5 GM TUBE BOTH EYES SCH (21:02)
[2021-03-02] MEDS: SKIN HEALING OINT (AQUAPHOR) 50 GM TUBE TOP SCH ×4 (00:30→22:49)
[2021-03-02] MEDS: WHITE PETROLATUM 30 GM TUBE TOP SCH ×4 (00:30→22:49)
[2021-03-02] MEDS: SILVER SULFADIAZINE 1% CREAM 25 GM TUBE TOP SCH ×3 (00:30→22:48)
[2021-03-02] MEDS: TRIAMCINOLONE 0.1% CREAM 80 GM TUBE TOP SCH ×3 (00:30→22:48)
[2021-03-02] MEDS: DESITIN 4OZ/NYSTATIN 15 GRAM MIXTURE PASTE TOP SCH ×3 (00:30→22:48)
[2021-03-02] MEDS: SODIUM BICARB INJ 50 MEQ in SODIUM CHLORIDE 0.45% 1,000 ML IV SCH ×3 (01:05→13:21)
[2021-03-02] MEDS: LACTULOSE 20 GM/30 ML UDCUP PO SCH ×6 (01:53→20:28)
[2021-03-02] MEDS: INSULIN REGULAR 100 UNIT/ML SUBCUT SCH ×4 (01:54→18:20)
[2021-03-02] MEDS: fentaNYL INJ 1,250 MCG in SODIUM CHLORIDE 0.9% 225 ML IV PRN ×3 (02:11→16:47)
[2021-03-02] MEDS: methylPREDNISolone SOD SUC 40 MG/1 ML VIAL IV SCH ×3 (02:14→18:21)
[2021-03-02 04:16] LABS: ABG Base Excess 1.2 MMOL/L (-2.5-2.5); ABG HCO3 25.5 MMOL/L (20-26); ABG Oxygen Saturation 98.2 % (95-100); ABG PCO2 27.6 MM HG (35-48); ABG PH 7.533 (7.35-7.45); ABG PO2 95.5 MM HG (80-95); ABG TCO2 21.3 MMOL/L (23-27); Allen Test Positive; Pt O2 Delivery Device Ventilator
[2021-03-02] MEDS: METOCLOPRAMIDE 10 MG/2 ML VIAL IV SCH ×2 (04:22→10:05)
[2021-03-02] MEDS: ALBUMIN 25% 12.5 GM/50 ML VIAL IV SCH ×2 (04:28→13:31)
[2021-03-02] MEDS: LEVOTHYROXINE 100 MCG TABLET PO SCH (05:48)
[2021-03-02 06:14] LABS: Hematocrit 25.2 VOL% (35.7-47.0); Hemoglobin 8.5 GM/DL (12.0-16.0); Immature Granulocytes Absolute 0.13 #; Lymphocytes # 0.8 10*3/uL (1.4-4.0); Lymphocytes % 12.3 % (21.3-54.2); Mean Corpuscular HGB Conc 33.7 GM/DL (32-36); Mean Corpuscular Volume 85.4 FL (87-102); Mean Platelet Volume 9.9 FL (9.6-12.0); Monocytes % 9.4 % (1.7-12.7); NRBC # 0.11 10*3/uL; Neutrophils % 76.3 % (38.7-73.9); Red Blood Count 2.95 MC/CUMM (3.8-5.5); Red Cell Distribution Width 18.1 % (9.3-17.3); White Blood Count 6.5 T/CUMM (4-12)
[2021-03-02 06:17] LABS: Platelet Count 28 T/CUMM (130-400)
[2021-03-02 06:30] LABS: Hypochromasia 1+; Microcytosis 1+; Platelet Estimate Decreased
[2021-03-02 06:31] LABS: Albumin 2.9 G/DL (3.4-5.0); Bilirubin,Total 7.6 MG/DL (0.20-1.00); Calcium 8.1 MG/DL (8.5-10.1); Osmolality,Calculated 301.3 MOS/KG (273-304); Potassium 3.6 MMOL/L (3.5-5.1); Total Protein 5.3 G/DL (6.4-8.2)
[2021-03-02] MEDS: MULTIVITAMIN (CENTRUM) TABLET PO SCH (10:04)
[2021-03-02] MEDS: DOCUSATE SODIUM 100 MG CAPSULE PO SCH (10:04)
[2021-03-02] MEDS: POTASSIUM CHLORIDE 20 MEQ TABLET PO SCH (10:04)
[2021-03-02] MEDS: RIFAXIMIN 550 MG TABLET PO SCH ×3 (10:05→20:28)
[2021-03-02] MEDS: SODIUM BICARBONATE 650 MG TABLET PO SCH (10:05)
[2021-03-02] MEDS: MIDODRINE 5 MG TABLET PO SCH ×3 (10:05→20:29)
[2021-03-02] MEDS: IMMUNE GLOBULIN 10% 20 GM in PREMIX 1 EACH IV SCH (11:12)
[2021-03-02] MEDS: MIDAZOLAM 100 MG in SODIUM CHLORIDE 0.9% 80 ML IV PRN (11:23)
[2021-03-02] MEDS: DOXYCYCLINE HYCLATE INJ 100 MG in SODIUM CHLORIDE 0.9% 100 ML IV SCH (16:20)
[2021-03-02] MEDS: DAPSONE 100 MG TABLET PER TUBE SCH (16:49)
[2021-03-02] MEDS ORDERED: VANCOMYCIN INJ 750 MG in SODIUM CHLORIDE 0.9% 250 ML IV ONE (17:00)
[2021-03-02] MEDS: MICAFUNGIN 100 MG in SODIUM CHLORIDE 0.9% 100 ML IV SCH (18:21)
[2021-03-02] MEDS: FAMOTIDINE 20 MG/2 ML VIAL IV SCH (18:21)
[2021-03-02] MEDS: MINERAL OIL/PETROLATUM OPH OINT 3.5 GM TUBE BOTH EYES SCH (22:48)
[2021-03-03] MEDS: fentaNYL INJ 1,250 MCG in SODIUM CHLORIDE 0.9% 225 ML IV PRN ×4 (00:10→21:23)
[2021-03-03] MEDS: LACTULOSE 20 GM/30 ML UDCUP PO SCH ×6 (00:29→20:31)
[2021-03-03] MEDS: INSULIN REGULAR 100 UNIT/ML SUBCUT SCH ×4 (00:30→17:27)
[2021-03-03] MEDS: methylPREDNISolone SOD SUC 40 MG/1 ML VIAL IV SCH ×3 (01:28→17:27)
[2021-03-03] MEDS: DOXYCYCLINE HYCLATE INJ 100 MG in SODIUM CHLORIDE 0.9% 100 ML IV SCH ×2 (03:44→14:21)
[2021-03-03] MEDS: MIDAZOLAM 100 MG in SODIUM CHLORIDE 0.9% 80 ML IV PRN ×2 (04:14→08:32)
[2021-03-03 04:15] LABS: Basophils % 0.1 % (0.0-0.8); Eosinophils % 0.1 % (0.00-10.9); Hemoglobin 7.9 GM/DL (12.0-16.0); Immature Granulocytes % 1.8 %; Immature Granulocytes Absolute 0.16 #; Lymphocytes # 0.5 10*3/uL (1.4-4.0); Mean Corpuscular HGB Conc 32.9 GM/DL (32-36); Mean Corpuscular Volume 87.9 FL (87-102); Mean Platelet Volume 12.5 FL (9.6-12.0); Monocytes % 5.7 % (1.7-12.7); Neutrophils % 86.3 % (38.7-73.9); Red Blood Count 2.73 MC/CUMM (3.8-5.5); Red Cell Distribution Width 18.5 % (9.3-17.3); White Blood Count 8.9 T/CUMM (4-12)
[2021-03-03 04:20] LABS: Platelet Count 14 T/CUMM (130-400)
[2021-03-03 04:48] LABS: Albumin 2.4 G/DL (3.4-5.0); Bilirubin,Total 7.3 MG/DL (0.20-1.00); Calcium 8.3 MG/DL (8.5-10.1); Osmolality,Calculated 296.7 MOS/KG (273-304); Total Protein 4.8 G/DL (6.4-8.2)
[2021-03-03 04:58] LABS: Hypochromasia 1+; Lymphocytes 11 % (20-55); Platelet Estimate Decreased; Segmented Neutrophils 83 % (50-85); Total Cells Counted 100
[2021-03-03] MEDS: LEVOTHYROXINE 100 MCG TABLET PO SCH (06:01)
[2021-03-03] MEDS: DAPSONE 100 MG TABLET PER TUBE SCH (09:27)
[2021-03-03] MEDS: SILVER SULFADIAZINE 1% CREAM 25 GM TUBE TOP SCH ×2 (09:28→20:43)
[2021-03-03] MEDS: TRIAMCINOLONE 0.1% CREAM 80 GM TUBE TOP SCH ×2 (09:28→20:43)
[2021-03-03] MEDS: MULTIVITAMIN (CENTRUM) TABLET PO SCH (09:28)
[2021-03-03] MEDS: RIFAXIMIN 550 MG TABLET PO SCH ×3 (09:28→20:32)
[2021-03-03] MEDS: SKIN HEALING OINT (AQUAPHOR) 50 GM TUBE TOP SCH ×3 (09:28→20:43)
[2021-03-03] MEDS: POTASSIUM CHLORIDE 20 MEQ TABLET PO SCH (09:28)
[2021-03-03] MEDS: WHITE PETROLATUM 30 GM TUBE TOP SCH ×3 (09:29→20:44)
[2021-03-03] MEDS: DESITIN 4OZ/NYSTATIN 15 GRAM MIXTURE PASTE TOP SCH ×2 (09:29→20:43)
[2021-03-03] MEDS: INSULIN GLARGINE 100 UNIT/ML SUBCUT SCH (09:37)
[2021-03-03] MEDS ORDERED: SODIUM CHLORIDE 0.9% 1,000 ML IV PRN (09:47)
[2021-03-03] MEDS ORDERED: ALBUMIN 25% 25 GM/100 ML VIAL IV ONE (15:20)
[2021-03-03] MEDS: NOREPINEPHRINE 16 MG in SODIUM CHLORIDE 0.9% 234 ML IV PRN (16:01)
[2021-03-03] MEDS: FAMOTIDINE 20 MG/2 ML VIAL IV SCH (17:28)
[2021-03-03] MEDS: MICAFUNGIN 100 MG in SODIUM CHLORIDE 0.9% 100 ML IV SCH (17:28)
[2021-03-03] MEDS: MINERAL OIL/PETROLATUM OPH OINT 3.5 GM TUBE BOTH EYES SCH (20:42)
[2021-03-04] MEDS: LACTULOSE 20 GM/30 ML UDCUP PO SCH ×6 (00:20→20:19)
[2021-03-04] MEDS: INSULIN REGULAR 100 UNIT/ML SUBCUT SCH ×4 (00:20→17:24)
[2021-03-04] MEDS: SILVER SULFADIAZINE 1% CREAM 25 GM TUBE TOP SCH ×2 (00:30→09:45)
[2021-03-04] MEDS: DOXYCYCLINE HYCLATE INJ 100 MG in SODIUM CHLORIDE 0.9% 100 ML IV SCH ×2 (02:55→16:18)
[2021-03-04] MEDS: methylPREDNISolone SOD SUC 40 MG/1 ML VIAL IV SCH ×3 (02:55→17:23)
[2021-03-04 04:10] LABS: ABG Base Excess 2.1 MMOL/L (-2.5-2.5); ABG HCO3 26.3 MMOL/L (20-26); ABG Oxygen Saturation 99.4 % (95-100); ABG PCO2 31.6 MM HG (35-48); ABG PH 7.506 (7.35-7.45); ABG TCO2 23.6 MMOL/L (23-27)
[2021-03-04 04:52] LABS: Basophils % 0.1 % (0.0-0.8); Hematocrit 21.7 VOL% (35.7-47.0); Immature Granulocytes % 1.4 %; Immature Granulocytes Absolute 0.13 #; Lymphocytes # 0.5 10*3/uL (1.4-4.0); Mean Corpuscular HGB Conc 32.3 GM/DL (32-36); Mean Corpuscular Volume 89.3 FL (87-102); Mean Platelet Volume 12.5 FL (9.6-12.0); Monocytes % 4.8 % (1.7-12.7); NRBC # 0.05 10*3/uL; Neutrophils % 88.7 % (38.7-73.9); Red Blood Count 2.43 MC/CUMM (3.8-5.5); Red Cell Distribution Width 18.6 % (9.3-17.3); White Blood Count 9.2 T/CUMM (4-12)
[2021-03-04 04:53] LABS: Platelet Count 20 T/CUMM (130-400)
[2021-03-04] MEDS: fentaNYL INJ 1,250 MCG in SODIUM CHLORIDE 0.9% 225 ML IV PRN ×2 (04:53→22:35)
[2021-03-04 05:10] LABS: Albumin 2.6 G/DL (3.4-5.0); Bilirubin,Total 6.8 MG/DL (0.20-1.00); Calcium 8.9 MG/DL (8.5-10.1); Osmolality,Calculated 302.3 MOS/KG (273-304); Potassium 3.8 MMOL/L (3.5-5.1); Total Protein 4.7 G/DL (6.4-8.2)
[2021-03-04 05:12] LABS: Hypochromasia 1+; Microcytosis 1+; Platelet Estimate Decreased
[2021-03-04] MEDS: LEVOTHYROXINE 100 MCG TABLET PO SCH (05:49)
[2021-03-04] MEDS: INSULIN GLARGINE 100 UNIT/ML SUBCUT SCH (09:43)
[2021-03-04] MEDS: MULTIVITAMIN (CENTRUM) TABLET PO SCH (09:44)
[2021-03-04] MEDS: RIFAXIMIN 550 MG TABLET PO SCH ×3 (09:44→20:20)
[2021-03-04] MEDS: SKIN HEALING OINT (AQUAPHOR) 50 GM TUBE TOP SCH ×3 (09:44→20:20)
[2021-03-04] MEDS: POTASSIUM CHLORIDE 20 MEQ TABLET PO SCH (09:44)
[2021-03-04] MEDS: DAPSONE 100 MG TABLET PER TUBE SCH (09:44)
[2021-03-04] MEDS: TRIAMCINOLONE 0.1% CREAM 80 GM TUBE TOP SCH ×2 (09:44→20:20)
[2021-03-04] MEDS: WHITE PETROLATUM 30 GM TUBE TOP SCH ×3 (09:45→20:20)
[2021-03-04] MEDS: DESITIN 4OZ/NYSTATIN 15 GRAM MIXTURE PASTE TOP SCH (09:45)
[2021-03-04] MEDS: FAMOTIDINE 20 MG/2 ML VIAL IV SCH (17:23)
[2021-03-04] MEDS: MICAFUNGIN 100 MG in SODIUM CHLORIDE 0.9% 100 ML IV SCH (17:24)
[2021-03-04] MEDS: MINERAL OIL/PETROLATUM OPH OINT 3.5 GM TUBE BOTH EYES SCH (20:19)
[2021-03-05] MEDS: LACTULOSE 20 GM/30 ML UDCUP PO SCH ×6 (00:21→19:59)
[2021-03-05] MEDS: INSULIN REGULAR 100 UNIT/ML SUBCUT SCH ×4 (00:21→17:51)
[2021-03-05] MEDS: DESITIN 4OZ/NYSTATIN 15 GRAM MIXTURE PASTE TOP SCH ×3 (00:50→20:35)
[2021-03-05] MEDS: SILVER SULFADIAZINE 1% CREAM 25 GM TUBE TOP SCH ×2 (00:50→09:49)
[2021-03-05] MEDS: methylPREDNISolone SOD SUC 40 MG/1 ML VIAL IV SCH ×3 (02:18→17:52)
[2021-03-05] MEDS: DOXYCYCLINE HYCLATE INJ 100 MG in SODIUM CHLORIDE 0.9% 100 ML IV SCH ×2 (02:18→16:17)
[2021-03-05] MEDS ORDERED: INSULIN REGULAR 100 UNIT/ML IV ONE (02:26)
[2021-03-05 04:27] LABS: Hematocrit 24.3 VOL% (35.7-47.0); Hemoglobin 7.7 GM/DL (12.0-16.0); Immature Granulocytes % 0.9 %; Immature Granulocytes Absolute 0.12 #; Lymphocytes # 0.5 10*3/uL (1.4-4.0); Lymphocytes % 4.2 % (21.3-54.2); Mean Corpuscular HGB Conc 31.7 GM/DL (32-36); Mean Corpuscular Volume 91.7 FL (87-102); Monocytes % 3.9 % (1.7-12.7); NRBC # 0.03 10*3/uL; Red Blood Count 2.65 MC/CUMM (3.8-5.5); Red Cell Distribution Width 20.1 % (9.3-17.3); White Blood Count 12.7 T/CUMM (4-12)
[2021-03-05 04:28] LABS: Platelet Count 24 T/CUMM (130-400)
[2021-03-05 04:30] LABS: ABG Base Excess -1.4 MMOL/L (-2.5-2.5); ABG HCO3 22.6 MMOL/L (20-26); ABG Oxygen Saturation 95.3 % (95-100); ABG PCO2 34.9 MM HG (35-48); ABG TCO2 23.7 MMOL/L (23-27)
[2021-03-05 04:46] LABS: Albumin 2.6 G/DL (3.4-5.0); Bilirubin,Total 6.3 MG/DL (0.20-1.00); Calcium 9.4 MG/DL (8.5-10.1); Lymphocytes 3 % (20-55); Osmolality,Calculated 311.5 MOS/KG (273-304); Potassium 4.2 MMOL/L (3.5-5.1); Segmented Neutrophils 94 % (50-85); Total Cells Counted 100; Total Protein 4.7 G/DL (6.4-8.2)
[2021-03-05 04:49] LABS: Hypochromasia 1+; Microcytosis 1+; Target Cells Slight
[2021-03-05 04:50] LABS: Burr Cells Slight; Platelet Estimate Decreased; Polychromasia Slight
[2021-03-05] MEDS: LEVOTHYROXINE 100 MCG TABLET PO SCH (06:19)
[2021-03-05] MEDS: POTASSIUM CHLORIDE 20 MEQ TABLET PO SCH (09:47)
[2021-03-05] MEDS: INSULIN GLARGINE 100 UNIT/ML SUBCUT SCH (09:47)
[2021-03-05] MEDS: MULTIVITAMIN (CENTRUM) TABLET PO SCH (09:47)
[2021-03-05] MEDS: RIFAXIMIN 550 MG TABLET PO SCH ×3 (09:48→20:00)
[2021-03-05] MEDS: DAPSONE 100 MG TABLET PER TUBE SCH (09:48)
[2021-03-05] MEDS: SKIN HEALING OINT (AQUAPHOR) 50 GM TUBE TOP SCH ×3 (09:48→20:35)
[2021-03-05] MEDS: TRIAMCINOLONE 0.1% CREAM 80 GM TUBE TOP SCH ×2 (09:48→20:35)
[2021-03-05] MEDS: WHITE PETROLATUM 30 GM TUBE TOP SCH ×3 (09:49→20:35)
[2021-03-05] MEDS: FAMOTIDINE 20 MG/2 ML VIAL IV SCH (17:52)
[2021-03-05] MEDS: MICAFUNGIN 100 MG in SODIUM CHLORIDE 0.9% 100 ML IV SCH (17:52)
[2021-03-05] MEDS: MINERAL OIL/PETROLATUM OPH OINT 3.5 GM TUBE BOTH EYES SCH (20:00)
[2021-03-06] MEDS: SILVER SULFADIAZINE 1% CREAM 25 GM TUBE TOP SCH ×3 (00:33→20:43)
[2021-03-06] MEDS: LACTULOSE 20 GM/30 ML UDCUP PO SCH ×6 (00:33→20:41)
[2021-03-06] MEDS: INSULIN REGULAR 100 UNIT/ML SUBCUT SCH ×7 (00:33→20:40)
[2021-03-06] MEDS: NOREPINEPHRINE 16 MG in SODIUM CHLORIDE 0.9% 234 ML IV PRN (02:31)
[2021-03-06] MEDS: methylPREDNISolone SOD SUC 40 MG/1 ML VIAL IV SCH ×3 (02:33→17:50)
[2021-03-06] MEDS: DOXYCYCLINE HYCLATE INJ 100 MG in SODIUM CHLORIDE 0.9% 100 ML IV SCH ×2 (02:33→15:43)
[2021-03-06 03:46] LABS: ABG Base Excess -7.3 MMOL/L (-2.5-2.5); ABG HCO3 18.1 MMOL/L (20-26); ABG Oxygen Saturation 95.7 % (95-100); ABG PCO2 35.6 MM HG (35-48); ABG PH 7.323 (7.35-7.45); ABG PO2 96.3 MM HG (80-95); ABG TCO2 19.1 MMOL/L (23-27)
[2021-03-06 05:19] LABS: PT Patient Result 26.5 SECS (10.5-12.0)
[2021-03-06 05:20] LABS: INR 3.4
[2021-03-06 05:21] LABS: Albumin 2.6 G/DL (3.4-5.0); Calcium 10.4 MG/DL (8.5-10.1); Osmolality,Calculated 328.5 MOS/KG (273-304); Potassium 4.3 MMOL/L (3.5-5.1); Total Protein 4.8 G/DL (6.4-8.2)
[2021-03-06] MEDS: LEVOTHYROXINE 100 MCG TABLET PO SCH (05:40)
[2021-03-06 06:03] LABS: Basophils % 0.1 % (0.0-0.8); Hematocrit 25.6 VOL% (35.7-47.0); Hemoglobin 7.9 GM/DL (12.0-16.0); Immature Granulocytes % 1.3 %; Immature Granulocytes Absolute 0.23 #; Lymphocytes # 0.4 10*3/uL (1.4-4.0); Lymphocytes % 2.3 % (21.3-54.2); Mean Corpuscular HGB Conc 30.9 GM/DL (32-36); Mean Corpuscular Volume 95.5 FL (87-102); Monocytes % 5.8 % (1.7-12.7); NRBC # 0.08 10*3/uL; Neutrophils % 90.5 % (38.7-73.9); Red Blood Count 2.68 MC/CUMM (3.8-5.5); Red Cell Distribution Width 21.2 % (9.3-17.3); White Blood Count 18.4 T/CUMM (4-12)
[2021-03-06 06:06] LABS: Platelet Count 35 T/CUMM (130-400)
[2021-03-06 06:21] LABS: Hypochromasia 1+; Lymphocytes 1 % (20-55); Platelet Estimate Decreased; Segmented Neutrophils 95 % (50-85); Total Cells Counted 100
[2021-03-06 06:22] LABS: Microcytosis 1+
[2021-03-06] MEDS: POTASSIUM CHLORIDE 20 MEQ TABLET PO SCH (08:22)
[2021-03-06] MEDS: DAPSONE 100 MG TABLET PER TUBE SCH (08:22)
[2021-03-06] MEDS: MULTIVITAMIN (CENTRUM) TABLET PO SCH (08:22)
[2021-03-06] MEDS: TRIAMCINOLONE 0.1% CREAM 80 GM TUBE TOP SCH ×2 (08:23→20:42)
[2021-03-06] MEDS: SKIN HEALING OINT (AQUAPHOR) 50 GM TUBE TOP SCH ×3 (08:24→20:41)
[2021-03-06] MEDS: INSULIN GLARGINE 100 UNIT/ML SUBCUT SCH (08:25)
[2021-03-06] MEDS: DESITIN 4OZ/NYSTATIN 15 GRAM MIXTURE PASTE TOP SCH ×2 (08:26→20:43)
[2021-03-06] MEDS: WHITE PETROLATUM 30 GM TUBE TOP SCH ×3 (08:26→20:43)
[2021-03-06] MEDS: RIFAXIMIN 550 MG TABLET PO SCH ×3 (08:26→20:40)
[2021-03-06] MEDS ORDERED: INSULIN GLARGINE 100 UNIT/ML SUBCUT SCH (09:00)
[2021-03-06] MEDS ORDERED: SODIUM CHLORIDE 0.9% 1,000 ML IV ONE (09:30)
[2021-03-06] MEDS: SODIUM CHLORIDE 0.9% 1,000 ML IV SCH ×3 (10:43→22:30)
[2021-03-06] MEDS: MICAFUNGIN 100 MG in SODIUM CHLORIDE 0.9% 100 ML IV SCH (17:49)
[2021-03-06] MEDS: FAMOTIDINE 20 MG/2 ML VIAL IV SCH (17:49)
[2021-03-06] MEDS: MINERAL OIL/PETROLATUM OPH OINT 3.5 GM TUBE BOTH EYES SCH (20:42)
[2021-03-07] MEDS: LACTULOSE 20 GM/30 ML UDCUP PO SCH ×6 (00:13→20:15)
[2021-03-07] MEDS: INSULIN REGULAR 100 UNIT/ML SUBCUT SCH ×6 (00:14→20:14)
[2021-03-07] MEDS: methylPREDNISolone SOD SUC 40 MG/1 ML VIAL IV SCH ×3 (02:34→18:09)
[2021-03-07] MEDS: DOXYCYCLINE HYCLATE INJ 100 MG in SODIUM CHLORIDE 0.9% 100 ML IV SCH ×2 (03:40→15:32)
[2021-03-07] MEDS ORDERED: MORPHINE 2 MG/1 ML SYRINGE IV PRN (03:48)
[2021-03-07 03:58] LABS: Basophils % 0.1 % (0.0-0.8); Hematocrit 24.6 VOL% (35.7-47.0); Hemoglobin 7.5 GM/DL (12.0-16.0); Immature Granulocytes % 3.3 %; Immature Granulocytes Absolute 0.86 #; Lymphocytes # 0.8 10*3/uL (1.4-4.0); Lymphocytes % 3.1 % (21.3-54.2); Mean Corpuscular HGB Conc 30.5 GM/DL (32-36); Mean Corpuscular Volume 98.4 FL (87-102); Mean Platelet Volume 13.8 FL (9.6-12.0); Monocytes % 9.9 % (1.7-12.7); NRBC # 1.37 10*3/uL; Neutrophils % 83.6 % (38.7-73.9); Platelet Count 51 T/CUMM (130-400); Red Cell Distribution Width 22.8 % (9.3-17.3); White Blood Count 26.4 T/CUMM (4-12)
[2021-03-07 04:11] LABS: Albumin 2.3 G/DL (3.4-5.0); Bilirubin,Total 6.9 MG/DL (0.20-1.00); Calcium 9.2 MG/DL (8.5-10.1); Osmolality,Calculated 309.4 MOS/KG (273-304); Potassium 4.1 MMOL/L (3.5-5.1); Total Protein 4.3 G/DL (6.4-8.2)
[2021-03-07] MEDS: fentaNYL INJ 1,250 MCG in SODIUM CHLORIDE 0.9% 225 ML IV PRN (04:15)
[2021-03-07 04:16] LABS: Hypochromasia 1+; Lymphocytes 3 % (20-55); Nucleated Red Blood Cells 6 (0-5); Platelet Estimate Decreased; Segmented Neutrophils 92 % (50-85); Total Cells Counted 100
[2021-03-07 04:17] LABS: Microcytosis Slight
[2021-03-07 04:32] LABS: ABG Base Excess -6.9 MMOL/L (-2.5-2.5); ABG HCO3 18.8 MMOL/L (20-26); ABG PCO2 38.5 MM HG (35-48); ABG PH 7.301 (7.35-7.45); ABG PO2 93.5 MM HG (80-95)
[2021-03-07] MEDS: LEVOTHYROXINE 100 MCG TABLET PO SCH (05:55)
[2021-03-07] MEDS: SODIUM CHLORIDE 0.9% 1,000 ML IV SCH ×3 (06:56→20:27)
[2021-03-07] MEDS: SKIN HEALING OINT (AQUAPHOR) 50 GM TUBE TOP SCH ×3 (08:40→20:16)
[2021-03-07] MEDS: MULTIVITAMIN (CENTRUM) TABLET PO SCH (08:40)
[2021-03-07] MEDS: DESITIN 4OZ/NYSTATIN 15 GRAM MIXTURE PASTE TOP SCH ×2 (08:41→20:16)
[2021-03-07] MEDS: POTASSIUM CHLORIDE 20 MEQ TABLET PO SCH (08:41)
[2021-03-07] MEDS: RIFAXIMIN 550 MG TABLET PO SCH ×3 (08:41→20:15)
[2021-03-07] MEDS: TRIAMCINOLONE 0.1% CREAM 80 GM TUBE TOP SCH ×2 (08:41→20:16)
[2021-03-07] MEDS: SILVER SULFADIAZINE 1% CREAM 25 GM TUBE TOP SCH ×2 (08:41→20:16)
[2021-03-07] MEDS: DAPSONE 100 MG TABLET PER TUBE SCH (08:41)
[2021-03-07] MEDS: INSULIN GLARGINE 100 UNIT/ML SUBCUT SCH (08:41)
[2021-03-07] MEDS: WHITE PETROLATUM 30 GM TUBE TOP SCH ×3 (08:41→20:15)
[2021-03-07 09:07] LABS: INR 3.2; PT Patient Result 32.7 SECS (10.5-12.0)
[2021-03-07] MEDS ORDERED: METOPROLOL TARTRATE 5 MG/5 ML VIAL IV ONE ×2 (13:55→15:00)
[2021-03-07 14:18] LABS: Basophils % 0.1 % (0.0-0.8); Hematocrit 28.1 VOL% (35.7-47.0); Hemoglobin 8.6 GM/DL (12.0-16.0); Immature Granulocytes % 1.8 %; Immature Granulocytes Absolute 0.45 #; Lymphocytes # 0.9 10*3/uL (1.4-4.0); Lymphocytes % 3.7 % (21.3-54.2); Mean Corpuscular HGB Conc 30.6 GM/DL (32-36); Mean Corpuscular Volume 97.2 FL (87-102); Mean Platelet Volume 12.7 FL (9.6-12.0); Monocytes % 5.8 % (1.7-12.7); NRBC # 0.62 10*3/uL; Neutrophils % 88.6 % (38.7-73.9); Platelet Count 51 T/CUMM (130-400); Red Blood Count 2.89 MC/CUMM (3.8-5.5); Red Cell Distribution Width 23.3 % (9.3-17.3); White Blood Count 24.4 T/CUMM (4-12)
[2021-03-07 14:33] LABS: Osmolality,Calculated 308.3 MOS/KG (273-304); Potassium 3.9 MMOL/L (3.5-5.1)
[2021-03-07 14:48] LABS: Band Neutrophils 1 % (0-10); Lymphocytes 4 % (20-55); Nucleated Red Blood Cells 5 (0-5); Platelet Estimate Decreased; Promyelocytes 1 %; Segmented Neutrophils 90 % (50-85); Total Cells Counted 100
[2021-03-07 14:49] LABS: Polychromasia 1+
[2021-03-07 14:50] LABS: Burr Cells Slight; Microcytosis Slight
[2021-03-07] MEDS: INSULIN LISPRO 100 UNIT/ML SUBCUT SCH ×2 (15:32→20:19)
[2021-03-07] MEDS: MICAFUNGIN 100 MG in SODIUM CHLORIDE 0.9% 100 ML IV SCH (18:08)
[2021-03-07] MEDS: FAMOTIDINE 20 MG/2 ML VIAL IV SCH (18:09)
[2021-03-07] MEDS: MINERAL OIL/PETROLATUM OPH OINT 3.5 GM TUBE BOTH EYES SCH (20:16)
[2021-03-07] MEDS: NOREPINEPHRINE 16 MG in SODIUM CHLORIDE 0.9% 234 ML IV PRN (23:00)
[2021-03-08] MEDS: LACTULOSE 20 GM/30 ML UDCUP PO SCH ×6 (00:06→21:29)
[2021-03-08] MEDS: INSULIN REGULAR 100 UNIT/ML SUBCUT SCH ×6 (00:06→21:35)
[2021-03-08] MEDS: methylPREDNISolone SOD SUC 40 MG/1 ML VIAL IV SCH ×3 (02:10→18:08)
[2021-03-08] MEDS: DOXYCYCLINE HYCLATE INJ 100 MG in SODIUM CHLORIDE 0.9% 100 ML IV SCH (03:45)
[2021-03-08 04:41] LABS: Basophils % 0.1 % (0.0-0.8); Hematocrit 21.4 VOL% (35.7-47.0); Immature Granulocytes % 1.1 %; Immature Granulocytes Absolute 0.19 #; Lymphocytes # 0.6 10*3/uL (1.4-4.0); Lymphocytes % 3.7 % (21.3-54.2); Mean Corpuscular HGB Conc 30.8 GM/DL (32-36); Mean Corpuscular Volume 97.7 FL (87-102); Mean Platelet Volume 13.3 FL (9.6-12.0); Monocytes % 5.8 % (1.7-12.7); NRBC # 0.37 10*3/uL; Neutrophils % 89.3 % (38.7-73.9); Red Cell Distribution Width 23.6 % (9.3-17.3); White Blood Count 17.5 T/CUMM (4-12)
[2021-03-08 04:43] LABS: Hemoglobin 6.6 GM/DL (12.0-16.0); Red Blood Count 2.19 MC/CUMM (3.8-5.5)
[2021-03-08 04:44] LABS: Platelet Count 38 T/CUMM (130-400)
[2021-03-08 04:48] LABS: ABG Base Excess -7.4 MMOL/L (-2.5-2.5); ABG HCO3 18.3 MMOL/L (20-26); ABG Oxygen Saturation 96.3 % (95-100); ABG PCO2 34.9 MM HG (35-48); ABG PH 7.322 (7.35-7.45); ABG PO2 92.5 MM HG (80-95); ABG TCO2 17.2 MMOL/L (23-27); Allen Test Positive; Pt O2 Delivery Device Ventilator
[2021-03-08 04:59] LABS: Hypochromasia 2+; Lymphocytes 4 % (20-55); Microcytosis 1+; Nucleated Red Blood Cells 1 (0-5); Platelet Estimate Decreased; Segmented Neutrophils 94 % (50-85); Total Cells Counted 100
[2021-03-08 05:03] LABS: INR 3.4
[2021-03-08 05:04] LABS: Albumin 1.9 G/DL (3.4-5.0); Calcium 9.4 MG/DL (8.5-10.1); Osmolality,Calculated 313.1 MOS/KG (273-304); PT Patient Result 35.4 SECS (10.5-12.0); Potassium 3.6 MMOL/L (3.5-5.1); Total Protein 3.7 G/DL (6.4-8.2)
[2021-03-08] MEDS: LEVOTHYROXINE 100 MCG TABLET PO SCH (06:16)
[2021-03-08] MEDS: SODIUM CHLORIDE 0.9% 1,000 ML IV SCH ×3 (06:32→20:45)
[2021-03-08] MEDS ORDERED: INSULIN GLARGINE 100 UNIT/ML SUBCUT SCH (09:00)
[2021-03-08] MEDS: RIFAXIMIN 550 MG TABLET PO SCH ×3 (09:22→21:29)
[2021-03-08] MEDS: DAPSONE 100 MG TABLET PER TUBE SCH (09:22)
[2021-03-08] MEDS: POTASSIUM CHLORIDE 20 MEQ TABLET PO SCH (09:22)
[2021-03-08] MEDS: MULTIVITAMIN (CENTRUM) TABLET PO SCH (09:22)
[2021-03-08] MEDS: fentaNYL INJ 1,250 MCG in SODIUM CHLORIDE 0.9% 225 ML IV PRN (09:22)
[2021-03-08] MEDS: SKIN HEALING OINT (AQUAPHOR) 50 GM TUBE TOP SCH ×3 (09:24→21:30)
[2021-03-08] MEDS: TRIAMCINOLONE 0.1% CREAM 80 GM TUBE TOP SCH ×2 (09:24→21:30)
[2021-03-08] MEDS: INSULIN LISPRO 100 UNIT/ML SUBCUT SCH ×3 (09:24→21:35)
[2021-03-08] MEDS: SILVER SULFADIAZINE 1% CREAM 25 GM TUBE TOP SCH (09:25)
[2021-03-08] MEDS: WHITE PETROLATUM 30 GM TUBE TOP SCH ×3 (09:25→21:31)
[2021-03-08] MEDS: DESITIN 4OZ/NYSTATIN 15 GRAM MIXTURE PASTE TOP SCH ×2 (09:25→21:30)
[2021-03-08] MEDS: CLINDAMYCIN INJ 600 MG/50 ML PREMIX IV SCH ×2 (10:58→18:08)
[2021-03-08] MEDS ORDERED: INSULIN GLARGINE 100 UNIT/ML SUBCUT ONE (11:21)
[2021-03-08 17:02] LABS: Hematocrit 27.9 VOL% (35.7-47.0)
[2021-03-08 17:04] LABS: Hemoglobin 8.7 GM/DL (12.0-16.0)
[2021-03-08] MEDS: FAMOTIDINE 20 MG/2 ML VIAL IV SCH (18:07)
[2021-03-08] MEDS: MINERAL OIL/PETROLATUM OPH OINT 3.5 GM TUBE BOTH EYES SCH (21:31)
[2021-03-09] MEDS: INSULIN REGULAR 100 UNIT/ML SUBCUT SCH ×6 (00:24→20:35)
[2021-03-09] MEDS: LACTULOSE 20 GM/30 ML UDCUP PO SCH ×6 (00:24→19:32)
[2021-03-09] MEDS: SILVER SULFADIAZINE 1% CREAM 25 GM TUBE TOP SCH ×2 (00:24→09:10)
[2021-03-09] MEDS: CLINDAMYCIN INJ 600 MG/50 ML PREMIX IV SCH ×3 (03:00→18:05)
[2021-03-09] MEDS: methylPREDNISolone SOD SUC 40 MG/1 ML VIAL IV SCH ×3 (03:00→18:05)
[2021-03-09 03:51] LABS: ABG HCO3 17.9 MMOL/L (20-26); ABG PCO2 32.5 MM HG (35-48); ABG PH 7.331 (7.35-7.45); ABG TCO2 16.1 MMOL/L (23-27)
[2021-03-09 04:43] LABS: Basophils % 0.1 % (0.0-0.8); Hematocrit 25.8 VOL% (35.7-47.0); Immature Granulocytes Absolute 0.34 #; Lymphocytes # 0.7 10*3/uL (1.4-4.0); Lymphocytes % 3.8 % (21.3-54.2); Mean Corpuscular Volume 94.2 FL (87-102); Monocytes % 6.8 % (1.7-12.7); NRBC # 0.71 10*3/uL; Neutrophils % 87.3 % (38.7-73.9); Platelet Count 47 T/CUMM (130-400); Red Blood Count 2.74 MC/CUMM (3.8-5.5); Red Cell Distribution Width 23.8 % (9.3-17.3); White Blood Count 17.3 T/CUMM (4-12)
[2021-03-09 04:58] LABS: Bilirubin,Total 9.4 MG/DL (0.20-1.00); Calcium 8.9 MG/DL (8.5-10.1); Osmolality,Calculated 312.3 MOS/KG (273-304); Potassium 3.6 MMOL/L (3.5-5.1); Total Protein 3.8 G/DL (6.4-8.2)
[2021-03-09 05:01] LABS: Hypochromasia 1+; Lymphocytes 2 % (20-55); Nucleated Red Blood Cells 3 (0-5); Platelet Estimate Decreased; Segmented Neutrophils 92 % (50-85); Total Cells Counted 100
[2021-03-09 05:02] LABS: Microcytosis Slight
[2021-03-09 05:04] LABS: PT Patient Result 34.2 SECS (10.5-12.0)
[2021-03-09 05:05] LABS: INR 3.3
[2021-03-09] MEDS: LEVOTHYROXINE 100 MCG TABLET PO SCH (05:33)
[2021-03-09] MEDS: SODIUM CHLORIDE 0.9% 1,000 ML IV SCH ×2 (06:48→17:24)
[2021-03-09] MEDS ORDERED: RIFAXIMIN 550 MG TABLET PO SCH (09:00)
[2021-03-09] MEDS ORDERED: INSULIN GLARGINE 100 UNIT/ML SUBCUT SCH ×2 (09:00)
[2021-03-09] MEDS: INSULIN LISPRO 100 UNIT/ML SUBCUT SCH ×3 (09:08→20:35)
[2021-03-09] MEDS: MULTIVITAMIN (CENTRUM) TABLET PO SCH (09:09)
[2021-03-09] MEDS: DAPSONE 100 MG TABLET PER TUBE SCH (09:09)
[2021-03-09] MEDS: POTASSIUM CHLORIDE 20 MEQ TABLET PO SCH (09:09)
[2021-03-09] MEDS: WHITE PETROLATUM 30 GM TUBE TOP SCH ×3 (09:10→20:11)
[2021-03-09] MEDS: DESITIN 4OZ/NYSTATIN 15 GRAM MIXTURE PASTE TOP SCH ×2 (09:10→20:10)
[2021-03-09] MEDS: TRIAMCINOLONE 0.1% CREAM 80 GM TUBE TOP SCH ×2 (09:10→20:11)
[2021-03-09] MEDS: SKIN HEALING OINT (AQUAPHOR) 50 GM TUBE TOP SCH ×3 (09:10→20:11)
[2021-03-09] MEDS: fentaNYL INJ 1,250 MCG in SODIUM CHLORIDE 0.9% 225 ML IV PRN (11:58)
[2021-03-09] MEDS: NOREPINEPHRINE 16 MG in SODIUM CHLORIDE 0.9% 234 ML IV PRN (13:58)
[2021-03-09] MEDS: FAMOTIDINE 20 MG/2 ML VIAL IV SCH (18:05)
[2021-03-09] MEDS: RIFAXIMIN 550 MG TABLET PO SCH (20:10)
[2021-03-09] MEDS: MINERAL OIL/PETROLATUM OPH OINT 3.5 GM TUBE BOTH EYES SCH (20:10)
[2021-03-10] MEDS: LACTULOSE 20 GM/30 ML UDCUP PO SCH ×6 (00:17→20:17)
[2021-03-10] MEDS: INSULIN REGULAR 100 UNIT/ML SUBCUT SCH ×6 (00:17→20:17)
[2021-03-10] MEDS: SILVER SULFADIAZINE 1% CREAM 25 GM TUBE TOP SCH ×3 (00:55→20:18)
[2021-03-10] MEDS: CLINDAMYCIN INJ 600 MG/50 ML PREMIX IV SCH ×3 (02:34→18:02)
[2021-03-10] MEDS: methylPREDNISolone SOD SUC 40 MG/1 ML VIAL IV SCH ×3 (02:34→17:37)
[2021-03-10] MEDS: SODIUM CHLORIDE 0.9% 1,000 ML IV SCH ×3 (04:18→16:39)
[2021-03-10 04:21] LABS: ABG Base Excess -8.2 MMOL/L (-2.5-2.5); ABG HCO3 16.9 MMOL/L (20-26); ABG Oxygen Saturation 93.8 % (95-100); ABG PCO2 32.6 MM HG (35-48); ABG PH 7.332 (7.35-7.45); ABG PO2 81.6 MM HG (80-95); ABG TCO2 17.9 MMOL/L (23-27)
[2021-03-10 04:47] LABS: Basophils % 0.1 % (0.0-0.8); Hematocrit 22.6 VOL% (35.7-47.0); Hemoglobin 7.1 GM/DL (12.0-16.0); Immature Granulocytes % 1.8 %; Immature Granulocytes Absolute 0.21 #; Lymphocytes # 0.4 10*3/uL (1.4-4.0); Mean Corpuscular HGB Conc 31.4 GM/DL (32-36); Mean Corpuscular Volume 95.4 FL (87-102); Monocytes % 6.1 % (1.7-12.7); NRBC # 0.94 10*3/uL; Platelet Count 40 T/CUMM (130-400); Red Blood Count 2.37 MC/CUMM (3.8-5.5)
[2021-03-10 05:01] LABS: Albumin 1.7 G/DL (3.4-5.0); Bilirubin,Total 9.3 MG/DL (0.20-1.00); Calcium 8.6 MG/DL (8.5-10.1); Osmolality,Calculated 309.4 MOS/KG (273-304); Potassium 3.3 MMOL/L (3.5-5.1); Total Protein 3.3 G/DL (6.4-8.2)
[2021-03-10 05:12] LABS: Hypochromasia 1+; Lymphocytes 6 % (20-55); Nucleated Red Blood Cells 6 (0-5); Platelet Estimate Decreased; Segmented Neutrophils 90 % (50-85); Total Cells Counted 100
[2021-03-10 05:16] LABS: PT Patient Result 36.2 SECS (10.5-12.0)
[2021-03-10 05:19] LABS: INR 3.5
[2021-03-10] MEDS: LEVOTHYROXINE 100 MCG TABLET PO SCH (06:02)
[2021-03-10] MEDS: INSULIN LISPRO 100 UNIT/ML SUBCUT SCH ×3 (08:50→20:19)
[2021-03-10] MEDS: INSULIN GLARGINE 100 UNIT/ML SUBCUT SCH (08:50)
[2021-03-10] MEDS: RIFAXIMIN 550 MG TABLET PO SCH ×2 (08:51→20:19)
[2021-03-10] MEDS: DAPSONE 100 MG TABLET PER TUBE SCH (08:51)
[2021-03-10] MEDS: MULTIVITAMIN (CENTRUM) TABLET PO SCH (08:51)
[2021-03-10] MEDS: POTASSIUM CHLORIDE 20 MEQ TABLET PO SCH (08:51)
[2021-03-10] MEDS: DESITIN 4OZ/NYSTATIN 15 GRAM MIXTURE PASTE TOP SCH ×2 (08:52→20:18)
[2021-03-10] MEDS: TRIAMCINOLONE 0.1% CREAM 80 GM TUBE TOP SCH ×2 (08:53→20:18)
[2021-03-10] MEDS: WHITE PETROLATUM 30 GM TUBE TOP SCH ×3 (08:53→20:18)
[2021-03-10] MEDS: SKIN HEALING OINT (AQUAPHOR) 50 GM TUBE TOP SCH ×3 (08:53→20:17)
[2021-03-10] MEDS ORDERED: SODIUM CHLORIDE 0.9% 1,000 ML IV PRN (10:38)
[2021-03-10] MEDS: fentaNYL INJ 1,250 MCG in SODIUM CHLORIDE 0.9% 225 ML IV PRN (13:24)
[2021-03-10] MEDS: FAMOTIDINE 20 MG/2 ML VIAL IV SCH (17:44)
[2021-03-10] MEDS: NOREPINEPHRINE 16 MG in SODIUM CHLORIDE 0.9% 234 ML IV PRN (18:03)
[2021-03-10 18:30] VITALS: BP 112/51
[2021-03-10] MEDS: MINERAL OIL/PETROLATUM OPH OINT 3.5 GM TUBE BOTH EYES SCH (20:18)
[2021-03-11] MEDS: INSULIN REGULAR 100 UNIT/ML SUBCUT SCH ×7 (00:15→23:58)
[2021-03-11] MEDS: LACTULOSE 20 GM/30 ML UDCUP PO SCH ×6 (00:15→20:33)
[2021-03-11] MEDS: SODIUM CHLORIDE 0.9% 1,000 ML IV SCH ×3 (00:16→08:51)
[2021-03-11] MEDS: methylPREDNISolone SOD SUC 40 MG/1 ML VIAL IV SCH ×3 (02:18→17:28)
[2021-03-11] MEDS: CLINDAMYCIN INJ 600 MG/50 ML PREMIX IV SCH ×2 (02:18→10:41)
[2021-03-11 03:34] LABS: ABG Base Excess -11.1 MMOL/L (-2.5-2.5); ABG HCO3 15.3 MMOL/L (20-26); ABG Oxygen Saturation 94.6 % (95-100); ABG PCO2 36.3 MM HG (35-48); ABG PH 7.243 (7.35-7.45); ABG PO2 90.1 MM HG (80-95); ABG TCO2 16.4 MMOL/L (23-27)
[2021-03-11 03:57] LABS: Basophils % 0.1 % (0.0-0.8); Hematocrit 27.3 VOL% (35.7-47.0); Hemoglobin 8.5 GM/DL (12.0-16.0); Immature Granulocytes % 1.2 %; Immature Granulocytes Absolute 0.15 #; Lymphocytes # 0.5 10*3/uL (1.4-4.0); Lymphocytes % 3.6 % (21.3-54.2); Mean Corpuscular HGB Conc 31.1 GM/DL (32-36); Mean Corpuscular Volume 95.5 FL (87-102); Mean Platelet Volume 13.2 FL (9.6-12.0); Monocytes % 5.4 % (1.7-12.7); NRBC # 1.89 10*3/uL; Neutrophils % 89.7 % (38.7-73.9); Red Blood Count 2.86 MC/CUMM (3.8-5.5); Red Cell Distribution Width 22.7 % (9.3-17.3); White Blood Count 12.5 T/CUMM (4-12)
[2021-03-11 04:02] LABS: Platelet Count 31 T/CUMM (130-400)
[2021-03-11 04:13] LABS: Albumin 1.6 G/DL (3.4-5.0); Bilirubin,Total 10.2 MG/DL (0.20-1.00); Calcium 8.5 MG/DL (8.5-10.1); Potassium 3.1 MMOL/L (3.5-5.1); Total Protein 3.2 G/DL (6.4-8.2)
[2021-03-11 04:22] LABS: PT Patient Result 36.6 SECS (10.5-12.0)
[2021-03-11 04:23] LABS: INR 3.5
[2021-03-11 05:12] LABS: Lymphocytes 3 % (20-55); Nucleated Red Blood Cells 17 (0-5); Platelet Estimate Decreased; Segmented Neutrophils 91 % (50-85); Target Cells 1+; Total Cells Counted 100
[2021-03-11 05:13] LABS: Burr Cells 2+; Polychromasia Few
[2021-03-11] MEDS: LEVOTHYROXINE 100 MCG TABLET PO SCH (05:40)
[2021-03-11] MEDS: POTASSIUM CHLORIDE 20 MEQ TABLET PO SCH (08:40)
[2021-03-11] MEDS: MULTIVITAMIN (CENTRUM) TABLET PO SCH (08:41)
[2021-03-11] MEDS: DAPSONE 100 MG TABLET PER TUBE SCH (08:41)
[2021-03-11] MEDS: RIFAXIMIN 550 MG TABLET PO SCH ×2 (08:41→20:33)
[2021-03-11] MEDS: DESITIN 4OZ/NYSTATIN 15 GRAM MIXTURE PASTE TOP SCH ×2 (08:43→20:35)
[2021-03-11] MEDS: TRIAMCINOLONE 0.1% CREAM 80 GM TUBE TOP SCH ×2 (08:43→20:34)
[2021-03-11] MEDS: SILVER SULFADIAZINE 1% CREAM 25 GM TUBE TOP SCH ×2 (08:43→20:35)
[2021-03-11] MEDS: SKIN HEALING OINT (AQUAPHOR) 50 GM TUBE TOP SCH ×3 (08:43→20:35)
[2021-03-11] MEDS: WHITE PETROLATUM 30 GM TUBE TOP SCH ×3 (08:43→20:34)
[2021-03-11] MEDS: INSULIN LISPRO 100 UNIT/ML SUBCUT SCH ×3 (08:50→20:34)
[2021-03-11] MEDS: INSULIN GLARGINE 100 UNIT/ML SUBCUT SCH (08:50)
[2021-03-11] MEDS ORDERED: LEVOFLOXACIN INJ 500 MG/100 ML PREMIX IV SCH (10:00)
[2021-03-11] MEDS ORDERED: POTASSIUM CHLORIDE 20 MEQ TABLET PO ONE (10:00)
[2021-03-11] MEDS ORDERED: LEVOFLOXACIN INJ 500 MG/100 ML PREMIX IV ONE (12:00)
[2021-03-11] MEDS ORDERED: SODIUM BICARBONATE 50 MEQ/50 ML VIAL IV ONE (12:29)
[2021-03-11] MEDS: fentaNYL INJ 1,250 MCG in SODIUM CHLORIDE 0.9% 225 ML IV PRN (15:52)
[2021-03-11] MEDS: FAMOTIDINE 20 MG/2 ML VIAL IV SCH (17:28)
[2021-03-11] MEDS: NOREPINEPHRINE 16 MG in SODIUM CHLORIDE 0.9% 234 ML IV PRN (20:08)
[2021-03-11] MEDS: MINERAL OIL/PETROLATUM OPH OINT 3.5 GM TUBE BOTH EYES SCH (20:34)
[2021-03-12] MEDS: LACTULOSE 20 GM/30 ML UDCUP PO SCH ×3 (00:25→11:13)
[2021-03-12 01:44] LABS: Basophils % 0.2 % (0.0-0.8); Eosinophils # 0.1 10*3/uL (0.0-0.87); Eosinophils % 0.3 % (0.00-10.9); Hematocrit 31.7 VOL% (35.7-47.0); Hemoglobin 9.9 GM/DL (12.0-16.0); Immature Granulocytes % 2.1 %; Immature Granulocytes Absolute 0.34 #; Lymphocytes # 0.7 10*3/uL (1.4-4.0); Lymphocytes % 4.4 % (21.3-54.2); Mean Corpuscular HGB Conc 31.2 GM/DL (32-36); Mean Corpuscular Volume 96.4 FL (87-102); Monocytes % 4.5 % (1.7-12.7); NRBC # 9.41 10*3/uL; Neutrophils % 88.5 % (38.7-73.9); Red Blood Count 3.29 MC/CUMM (3.8-5.5); Red Cell Distribution Width 24.2 % (9.3-17.3); White Blood Count 16.4 T/CUMM (4-12)
[2021-03-12] MEDS: methylPREDNISolone SOD SUC 40 MG/1 ML VIAL IV SCH ×2 (01:45→11:09)
[2021-03-12 01:48] LABS: ABG Base Excess -10.6 MMOL/L (-2.5-2.5); ABG HCO3 15.9 MMOL/L (20-26); ABG PCO2 35.3 MM HG (35-48); ABG PH 7.256 (7.35-7.45); ABG TCO2 14.7 MMOL/L (23-27)
[2021-03-12 01:51] LABS: Platelet Count 36 T/CUMM (130-400)
[2021-03-12 02:04] LABS: Albumin 1.8 G/DL (3.4-5.0); Calcium 8.7 MG/DL (8.5-10.1); Osmolality,Calculated 302.1 MOS/KG (273-304); Potassium 4.7 MMOL/L (3.5-5.1); Total Protein 3.7 G/DL (6.4-8.2)
[2021-03-12 02:05] LABS: Bilirubin,Total 13.6 MG/DL (0.20-1.00)
[2021-03-12 02:16] LABS: PT Patient Result 37.4 SECS (10.5-12.0)
[2021-03-12 02:17] LABS: INR 3.6
[2021-03-12] MEDS: INSULIN REGULAR 100 UNIT/ML SUBCUT SCH ×2 (03:49→08:29)
[2021-03-12] MEDS: fentaNYL INJ 1,250 MCG in SODIUM CHLORIDE 0.9% 225 ML IV PRN (03:56)
[2021-03-12] MEDS: LEVOTHYROXINE 100 MCG TABLET PO SCH (05:53)
[2021-03-12] MEDS: NOREPINEPHRINE 16 MG in SODIUM CHLORIDE 0.9% 234 ML IV PRN (06:18)
[2021-03-12] MEDS ORDERED: SODIUM CHLORIDE 0.9% 1,000 ML IV ONE ×3 (07:25→08:14)
[2021-03-12] MEDS ORDERED: PHENYLEPHRINE DRIP 40 MG/250 ML PREMIX IV ONE (07:28)
[2021-03-12] MEDS ORDERED: PHENYLEPHRINE DRIP 40 MG/250 ML PREMIX IV PRN ×3 (07:48→08:26)
[2021-03-12] MEDS ORDERED: SODIUM BICARBONATE 50 MEQ/50 ML VIAL IV ONE (07:52)
[2021-03-12] MEDS ORDERED: LACTATED RINGERS 500 ML IV ONE (09:08)
[2021-03-12] MEDS ORDERED: DEXTROSE 50% 25 GM/50 ML SYRINGE IV ONE (09:10)
[2021-03-12] MEDS ORDERED: AMIODARONE 150 MG/3 ML VIAL ONE (09:10)
[2021-03-12] MEDS ORDERED: MAGNESIUM SULFATE 1 GM/2 ML VIAL ONE (09:10)
[2021-03-12] MEDS ORDERED: SODIUM BICARBONATE 50 MEQ/50 ML SYRINGE IV ONE (09:10)
[2021-03-12] MEDS ORDERED: EPINEPHrine 1 MG/10 ML SYRINGE ONE ×2 (09:10)
[2021-03-12] MEDS ORDERED: CALCIUM CHLORIDE 1,000 MG/10 ML SYRINGE IV ONE (09:10)
[2021-03-12] MEDS: POTASSIUM CHLORIDE 20 MEQ TABLET PO SCH (11:14)
[2021-03-12] MEDS: DAPSONE 100 MG TABLET PER TUBE SCH (11:14)
[2021-03-12] MEDS: MULTIVITAMIN (CENTRUM) TABLET PO SCH (11:14)
[2021-03-12] MEDS: INSULIN GLARGINE 100 UNIT/ML SUBCUT SCH (11:14)
[2021-03-12] MEDS: TRIAMCINOLONE 0.1% CREAM 80 GM TUBE TOP SCH (11:14)
[2021-03-12] MEDS: INSULIN LISPRO 100 UNIT/ML SUBCUT SCH (11:14)
[2021-03-12] MEDS: SKIN HEALING OINT (AQUAPHOR) 50 GM TUBE TOP SCH (11:14)
[2021-03-12] MEDS: SILVER SULFADIAZINE 1% CREAM 25 GM TUBE TOP SCH (11:15)
[2021-03-12] MEDS: RIFAXIMIN 550 MG TABLET PO SCH (11:15)
[2021-03-12] MEDS: WHITE PETROLATUM 30 GM TUBE TOP SCH (11:15)
[2021-03-12] MEDS: DESITIN 4OZ/NYSTATIN 15 GRAM MIXTURE PASTE TOP SCH (11:15)
[2021-03-13] MEDS ORDERED: LEVOFLOXACIN INJ 250 MG/50 ML PREMIX IV SCH (12:00)
[2021-03-21] MEDS ORDERED: MIDAZOLAM 2 MG/2 ML VIAL IV ONE (10:46)
== END 2021-03-12 09:40 | disposition expired | DRG 441 ==
LOC: EDSEX → EDBD → EDUNIT# → N.ED 18:52 → SUATTDRO 22:26 → N.EDINP 22:26 → N.3E 02-16 04:12 → N.CC 02-25 17:11
PROVIDERS: ADMIT Internal Medicine; ATTEND Internal Medicine